=== PATIENT | male | born 1990 | race Hispanic/Latino ===

== ENCOUNTER 2021-07-06 15:38 | Emergency (ER) | payer BC, SELFPAY ==
[2021-07-06 15:39] VITALS: BP 131/81; PULSE 94; RESP 14; TEMP 36.1; O2SAT 99
--- NOTE | 2021-07-06 16:27 | ED.EYEPROB ---
HPI - Eye Problem General Chief complaint: Eye Problems Stated complaint: r eye pain Time Seen by Provider: 07/06/21 16:27 History of Present Illness HPI Narrative: 31 yo male w/ h/o DM presents to the ED c/o eye pain. He reports that as soon as he opened his eyes this morning he had a shooting pain in the right eye. When the eye is closed or he is in a dark room he does not have any pain. Vision is unchanged. No foreign body sensation. No headache. He does not wear contacts or glasses. Related Data Allergies Allergy/AdvReac Type Severity Reaction Status Date / Time No Known Allergies Allergy Verified 11/19/18 14:12 Review of Systems Review of Systems: All systems reviewed & are unremarkable except as noted in HPI and below Constitutional: Constitutional: Denies chills and Denies fever(s) Eyes: Eyes: Denies change in vision and Reports photophobia ENT: Reports system reviewed and no additional complaints, except as documented, Denies dizziness, Denies nasal congestion and Denies sore throat Cardiovascular: Cardiovascular: Denies chest pain Respiratory: Respiratory: Denies dyspnea Gastrointestinal: Gastrointestinal: Denies abdominal pain and Denies nausea Neurologic: Denies confusion, Denies dizziness, Denies headache(s), Denies numbness and Denies weakness [facility] Past Medical History Medical History (Updated 07/06/21 @ 21:15 by Binu Aaron MD) Diabetes Social History Social History (Updated 07/06/21 @ 21:16 by Binu Aaron MD) Smoking status: Never smoker Exam Const: General: healthy appearing, no acute distress and alert Orientation/consciousness: patient oriented x3 HENMT: Head: normal to inspection Ears: external ears normal, TM's normal bilaterally and EAC's normal Face and sinus: normal facial exam and sinuses nontender Eyes: Visual Ellis: normal visual ellis by confrontation Alignment and Position: alignment normal and position normal Periorbital: periorbital findings normal Eyelids: eyelids normal Conjunctivae: conjunctival abnormality right conjunctival injection diffuse (minimal) Cornea: corneas normal and fluorescein used Pupils: Equal, round and reactive pupils present EOM: EOMs intact bilaterally Direct Ophthalmoscopy: anterior chamber normal and photophobia (right) Neck: Neck: normal visual inspection and no lymphadenopathy Resp: Effort & Inspection: normal respiratory effort Auscultation: clear to auscultation bilaterally Cardio: Rate: regular rate Rhythm: regular rhythm Skin: General skin exam: normal color Neuro: General: patient oriented x3, moves all extremities, no focal motor deficits and CN's II-XI intact bilaterally Speech: normal speech Gait exam (Neuro): Normal gait present Course Vital Signs Vital signs: Vital Signs Temperature 36.1 C L 07/06/21 15:39 Pulse Rate 94 07/06/21 15:39 Respiratory Rate 14 07/06/21 15:39 Blood Pressure 131/81 07/06/21 15:39 Pulse Oximetry 99 07/06/21 15:39 Temperature 36.1 C L 07/06/21 15:39 Pulse Rate 90 07/06/21 18:00 Respiratory Rate 20 07/06/21 18:00 Blood Pressure 127/77 07/06/21 18:00 Pulse Oximetry 98 07/06/21 18:00 MDM - Eye Problem MDM Narrative Medical decision making narrative: no fluorescein uptake. Normal vision. Minimal injection. No sign of daniel/orbital cellulitis. Unclear cause. I will give ketorolac eyedrops for pain control and erythromycin ointment incase there is infection, although I see no clear sign of it. He will follow up with ophthalmology if pain does not resolve in 1-2 days. Differential Diagnosis Differential diagnosis: Likely corneal abrasion, conjunctivitis and acute iritis Medical Records Attestation: I reviewed the patient's medical records. Discharge Plan Discharge Clinical Impression: Acute iritis of right eye Patient Disposition: Home, Self-Care Condition: Stable Instructions: Antibiotic Form, Iritis (ED) Follow-up/Referr
--- NOTE | 2021-07-06 16:47 | PC.NURSE ---
Medications removed under wrong patient. Medications were not administered.
[2021-07-06] MEDS: ERYTHROMYCIN OPHTH OINTMENT 1 GM TUBE 1 APPLIC RIGHT EYE (17:19)
[2021-07-06] MEDS: KETOROLAC 0.5% OP SOLN 5 ML BOTTLE 1 DROP RIGHT EYE (17:19)
[2021-07-06 18:00] VITALS: BP 127/77; PULSE 90; RESP 20; O2SAT 98
== END 2021-07-06 18:00 | disposition home or self-care (01) ==
PROVIDERS: Emergency Provider Emergency Medicine
DX: H20.00 Unspecified acute and subacute iridocyclitis (principal); E11.9 Type 2 diabetes mellitus without complications
CPT/HCPCS: 99283; A9270; J1630; J2060

== ENCOUNTER 2021-12-13 15:11 | Emergency (ER) | payer MEDICAID, SELFPAY ==
[2021-12-13 15:14] VITALS: BP 132/86; PULSE 70; RESP 14; TEMP 36.4; O2SAT 100
[2021-12-13 15:24] LABS: Glucose Point of Care 347 mg/dl (65-105)
[2021-12-13 19:14] VITALS: BP 125/78; PULSE 74; RESP 18; O2SAT 98
[2021-12-13 23:49] LABS: Alveolar/Arterial O2 Gradient 13.7 mmHg; Base Excess ABG 0.3 mEq/l (+/-2.0); Fractional Inspired Oxygen 21 %; Oxygen Content ABG 21.2 %vol (16.0-22.0); Oxygen Saturation ABG 97.4 % (95.0-100.0); Oxyhemoglobin 96.4 % THb (90.0-100.0); PCO2 ABG 36.2 mmHg (35.0-45.0); PO2 ABG 92.7 mmHg (80.0-100.0); PO2 FiO2 Ratio Arterial Blood 4.41 %; Total Hemoglobin 15.6 g/dL (12.0-18.0); pH ABG 7.439 (7.350-7.450)
[2021-12-13 23:50] LABS: Device ROOM AIR; Modified Allen's Test Pass; Site Drawn RIGHT RADIAL
[2021-12-13 23:52] VITALS: BP 134/92; PULSE 88; RESP 16; TEMP 36.8; O2SAT 100
[2021-12-13] MEDS: SODIUM CHLORIDE 0.9% IV 1,000 ML 999 ML IV CONT (23:52)
[2021-12-14 00:02] LABS: Basophils Absolute Auto 0.1 K/mm3 (0.0-0.1); Basophils Percent Auto 0.6 % (0.2-1.2); Eosinophils Absolute Auto 0.1 K/mm3 (0-0.3); Eosinophils Percent Auto 1.5 % (0-4.4); Hemoglobin 16.2 g/dL (14.0-18.0); Immature Granulocyte Absolute 0.03 K/mm3 (0.00-0.031); Immature Granulocyte Percent A 0.3 % (0-0.5); Lymphocytes Absolute Auto 2.44 K/mm3 (0.9-3.2); Lymphocytes Percent Auto 28.4 % (18.3-44.2); Mean Corpuscular HGB Conc 35.2 g/dl (32-36); Mean Corpuscular Hemoglobin 28.9 pg (26-34); Mean Platelet Volume 9.4 fl (7.4-10.4); Monocytes Absolute Auto 0.4 K/mm3 (0.1-0.6); Monocytes Percent Auto 5.1 % (2.6-8.5); Neutrophils Absolute Auto 5.5 K/mm3 (1.3-6.7); Neutrophils Percent Auto 64.1 % (45.5-73.1); Platelet Count Result 355 k/mm3 (150-375); Red Blood Count 5.61 M/mm3 (4.6-6.20); Red Cell Distribution Width 12.2 % (11.5-14.5); White Blood Count 8.6 K/mm3 (4.5-10.0)
[2021-12-14 00:14] LABS: Add Urine Microscopic? YES; Appearance Urine Clear (Clear); Bilirubin Urine Negative (Negative); Blood Urine 1+ (Negative); Color Urine Yellow (Yellow); Glucose Urine UA 3+ mg/dL (Negative); Ketones Urine 1+ mg/dL (Negative); Leukocyte Esterase Ur Negative LEU/UL (Negative); Mucus Urine Rare /lpf; Nitrate Urine Negative (Negative); Protein Urine 1+ mg/dL (Negative); Squamous Epithelial Cell Urine Rare /hpf (Few); Urobilinogen Urine Negative mg/dL (<2.0); WBC Urine 0-3 /hpf
[2021-12-14 00:15] LABS: Specific Grav Ur 1.038 (1.001-1.035)
[2021-12-14 00:16] LABS: Alanine Aminotransferase 44 U/L (4-50); Albumin Level 5.2 g/dL (3.5-5.1); Alkaline Phosphatase 130 U/L (38-126); Anion Gap 7 mmol/L (8-16); Aspartate Amino Transferase 35 U/L (17-59); Blood Urea Nitrogen 18 mg/dL (9-20); Calcium 9.9 mg/dL (8.4-10.2); Carbon Dioxide 28 mmol/L (22-30); Chloride 97 mmol/L (98-107); Estimated Glomerular Filt Rate > 60; Glucose 320 mg/dL (65-110); Magnesium 1.8 mg/dL (1.6-2.3); Potassium 4.1 mmol/L (3.4-5.0); Sodium 132 mmol/L (137-145)
[2021-12-14 00:19] LABS: Beta-Hydroxybutyrate/Acetoacetate 0.31 mmol/L (0.02-0.27)
--- NOTE | 2021-12-14 00:54 | ED.GENADULT ---
HPI - General Adult General Chief complaint: Recheck/Abnormal Lab/Rx Stated complaint: high blood sugar Time Seen by Provider: 12/13/21 23:25 History of Present Illness HPI narrative: Patient is a 31-year-old gentleman who presents the emergency department with chief complaint of hyperglycemia. The patient reports that he has history of diabetes where he takes insulin and reports that he lost his insurance has been several months since he has taken his insulin patient already saw his primary care physician today who wrote him a prescription for insulin but had him come to the emergency department so we can get his blood sugars down instead of having him do it at home. Patient denies chest pain denies shortness of breath denies fever denies chills reports that he does have polyuria polydipsia. Related Data Home Medications Medication Instructions Recorded Confirmed No Home Medications 12/13/21 12/13/21 Allergies Allergy/AdvReac Type Severity Reaction Status Date / Time No Known Allergies Allergy Verified 12/13/21 23:45 Review of Systems Review of Systems: A 10 system review of systems was completed on the patient and is negative except for what is stated in the HPI. Nursing and ancillary documentation was reviewed. [facility] Past Medical History Medical History Diabetes Social History Social History Smoking status: Never smoker Exam Narrative: GENERAL: Well-appearing, well-nourished, and in no acute distress. HEAD: Normocephalic, atraumatic. EYES: PERRLA and EOMI. ENT: Nares clear, no rhinorrhea or epistaxis. Mucous membranes moist. NECK: Supple. CHEST: Clear to auscultation. No respiratory distress. HEART: Regular rate and rhythm. No murmur heard. Normal peripheral pulses. ABDOMEN: Soft, nontender, nondistended, normal active bowel sounds. EXTREMITIES: Normal range of motion. No edema. SKIN: Warm, dry, no rash. NEURO: No focal deficits. Alert and oriented x3. PSYCH: Normal mood and affect. Course Vital Signs Vital signs: Vital Signs Temperature 36.4 C L 12/13/21 15:14 Pulse Rate 70 12/13/21 15:14 Respiratory Rate 14 12/13/21 15:14 Blood Pressure 132/86 12/13/21 15:14 Pulse Oximetry 100 12/13/21 15:14 Temperature 36.8 C 12/13/21 23:52 Pulse Rate 88 12/13/21 23:52 Respiratory Rate 16 12/13/21 23:52 Blood Pressure 134/92 H 12/13/21 23:52 Pulse Oximetry 100 12/13/21 23:52 Medical Decision Making Vital Signs Vital Signs: Vital Signs Temperature 36.4 C L 12/13/21 15:14 Pulse Rate 70 12/13/21 15:14 Respiratory Rate 14 12/13/21 15:14 Blood Pressure 132/86 12/13/21 15:14 Pulse Oximetry 100 12/13/21 15:14 Temperature 36.8 C 12/13/21 23:52 Pulse Rate 88 12/13/21 23:52 Respiratory Rate 16 12/13/21 23:52 Blood Pressure 134/92 H 12/13/21 23:52 Pulse Oximetry 100 12/13/21 23:52 Lab Data Result diagrams: 12/13/21 23:55 12/13/21 23:55 Labs: Lab Results 12/13/21 12/13/21 12/13/21 Range/Units 15:19 23:55 23:55 WBC 8.6 (4.5-10.0) K/mm3 RBC 5.61 (4.6-6.20) M/mm3 Hgb 16.2 (14.0-18.0) g/dL Hct 46.0 (42.0-52.0) % MCV 82.0 (80-100) fl MCH 28.9 (26-34) pg MCHC 35.2 (32-36) g/dl RDW 12.2 (11.5-14.5) % Plt Count 355 (150-375) k/mm3 MPV 9.4 (7.4-10.4) fl Immature Gran % (Auto) 0.3 (0-0.5) % Neut % (Auto) 64.1 (45.5-73.1) % Lymph % (Auto) 28.4 (18.3-44.2) % [place] % (Auto) 5.1 (2.6-8.5) % Eos % (Auto) 1.5 (0-4.4) % Baso % (Auto) 0.6 (0.2-1.2) % Lymph # (Auto) 2.44 (0.9-3.2) K/mm3 [place] # (Auto) 0.4 (0.1-0.6) K/mm3 Eos # (Auto) 0.1 (0-0.3) K/mm3 Baso # (Auto) 0.1 (0.0-0.1) K/mm3 Abs Immat Gran (auto) 0.03 (0.00-0.031) K/mm3 Absolute Neuts (auto) 5.5 (1.3-6.7) K/mm3 Absolut
[2021-12-14] MEDS: SODIUM CHLORIDE 0.9% IV 1,000 ML 999 ML IV CONT (00:59)
[2021-12-14 01:53] LABS: Glucose Point of Care 250 mg/dl (65-105)
[2021-12-14] MEDS: INSULIN HUMAN REGULAR (*BKC) 100 UNITS/ML SUB-Q (02:06)
[2021-12-14 03:00] LABS: Glucose Point of Care 271 mg/dl (65-105)
[2021-12-14 03:34] VITALS: BP 115/89; PULSE 77; RESP 16; O2SAT 100
== END 2021-12-14 03:35 | disposition home or self-care (01) ==
PROVIDERS: Emergency Provider Emergency Medicine; PCP Physician Assistant
DX: E11.65 Type 2 diabetes mellitus with hyperglycemia (principal); T38.3X6A Underdosing of insulin and oral hypoglycemic [antidiabetic] drugs, initial encounter; Z91.120 Patient's intentional underdosing of medication regimen due to financial hardship; Z79.4 Long term (current) use of insulin
CPT/HCPCS: 36415; 36600; 80053; 81001; 82010; 82805; 82948; 83735; 85025; 96360; 96361; 99283; J1815; J7030

== ENCOUNTER 2024-04-06 02:11 | Emergency (ER) | payer OTHER, MEDICAID, SELFPAY ==
--- NOTE | ~2024-04-06 | XR_ITS ---
Clinical Indication: Chest pain PA and lateral views of the chest: Comparison: None Findings: The lungs are clear, without evidence of focal consolidation or pleural effusion. Cardiome diastinal silhouette is within normal limits. Bones and soft tissues are unremarkable. Impression: Normal chest. Reviewed, dictated and finalized at location . Impression: Normal chest.
--- NOTE | 2024-04-06 02:12 | ECG_ITS ---
SEE SCANNED COPY FOR CONFIRMED REPORT MTDD
[2024-04-06 02:17] VITALS: BP 129/77; PULSE 78; RESP 15; TEMP 36.6; O2SAT 99
[2024-04-06 02:33] VITALS: O2SAT 99
[2024-04-06 02:36] LABS: Basophils Absolute Auto 0.1 K/mm3 (0.0-0.1); Basophils Percent Auto 0.7 % (0.2-1.2); Eosinophils Absolute Auto 0.2 K/mm3 (0-0.3); Eosinophils Percent Auto 2.7 % (0-4.4); Hematocrit 42.5 % (42.0-52.0); Hemoglobin 14.8 g/dL (14.0-18.0); Immature Granulocyte Absolute 0.02 K/mm3 (0.00-0.031); Immature Granulocyte Percent A 0.2 % (0-0.5); Lymphocytes Absolute Auto 2.57 K/mm3 (0.9-3.2); Mean Corpuscular HGB Conc 34.8 g/dl (32-36); Mean Corpuscular Hemoglobin 29.4 pg (26-34); Mean Corpuscular Volume 84.5 fl (80-100); Mean Platelet Volume 9.5 fl (7.4-10.4); Monocytes Absolute Auto 0.5 K/mm3 (0.1-0.6); Monocytes Percent Auto 5.1 % (2.6-8.5); Neutrophils Absolute Auto 5.5 K/mm3 (1.3-6.7); Neutrophils Percent Auto 62.3 % (45.5-73.1); Platelet Count Result 349 k/mm3 (150-375); Red Blood Count 5.03 M/mm3 (4.6-6.20); White Blood Count 8.9 K/mm3 (4.5-10.0)
[2024-04-06 03:10] LABS: INR 0.9; Partial Thromboplastin Time 27.3 Seconds (22.3-36.8); Prothrombin Time 12.9 Seconds (11.1-14.7)
[2024-04-06 03:16] LABS: Alanine Aminotransferase 38 U/L (6-50); Albumin Level 4.6 g/dL (3.5-5.1); Alkaline Phosphatase 117 U/L (38-126); Anion Gap 5 mmol/L (4-12); Aspartate Amino Transferase 37 U/L (17-59); Bilirubin,Total 0.7 mg/dL (0.2-1.3); Blood Urea Nitrogen 23 mg/dL (9-20); Calcium 9.2 mg/dL (8.4-10.2); Carbon Dioxide 26 mmol/L (22-30); Chloride 104 mmol/L (98-107); Estimated CRCL calculation 121 ml/min; Estimated Glomerular Filt Rate > 60; Glucose 236 mg/dL (65-110); Lipase 55 U/L (23-300); Potassium 4.5 mmol/L (3.4-5.0); Sodium 135 mmol/L (137-145)
[2024-04-06 03:28] LABS: Troponin I 0.028 ng/mL (0.000-0.034)
--- NOTE | 2024-04-06 04:28 | ED.CHESTPAIN ---
HPI - Chest Pain General Chief Complaint: Chest Pain Stated Complaint: chest pain Time Seen by Provider: 04/06/24 03:38 History of Present Illness HPI narrative: Patient is a 34-year-old male who presents to the emergency department this evening complaining chest pain for the past 2-3 days. Patient admits that he has had chest pain similar to this the and did present a different emergency department and full workup was negative and he was told that his chest pain was due to stress. Patient states that the pain has somewhat subsided since it started but he still wanted to come in and get checked out. Patient admits that the pain is reproducible. He denies any shortness of breath, any URI symptoms, any fevers or chills, and any sharp stabbing chest pain. Patient denies cardiac history, denies any family history of cardiovascular disease and admits that he is a type 1 diabetic. There are no additional symptoms or concerns at this time. Related Data Home Medications Medication Instructions Recorded Confirmed No Home Medications 12/13/21 12/13/21 Allergies Allergy/AdvReac Type Severity Reaction Status Date / Time No Known Allergies Allergy Verified 12/13/21 23:45 Review of Systems Review of Systems: All systems are reviewed and are negative unless stated otherwise in the HPI. [facility] Past Medical History Medical History Diabetes Social History Social History Smoking status: Never smoker Exam Narrative: General: Alert, awake, afebrile, in no acute distress. HEENT: PERRL, no rhinorrhea, no post nasal drip, oropharynx clear. Cardiovascular: Regular rate and rhythm, no murmurs, rubs or gallops, no peripheral edema. Respiratory: Clear to auscultation bilaterally, no tachypnea, no wheezing, no rhonchi, no rubs, no respiratory distress. Abdomen: Soft, nontender, nondistended, no rebound, no guarding, no peritoneal signs. Musculoskeletal: No joint swelling or deformity, normal muscle tone. Skin: No rashes or petechia, no signs of infection. Psychiatric: Alert and oriented, normal behavior and judgment for situation. Neurological: Alert and oriented to person, place, and time. Follows all commands. No focal deficits, speech is clear and fluent. Course Vital Signs Vital signs: Vital Signs Temperature 98 F 04/06/24 02:17 Pulse Rate 78 04/06/24 02:17 Respiratory Rate 15 04/06/24 02:17 Blood Pressure 129/77 04/06/24 02:17 Pulse Oximetry 99 04/06/24 02:17 Oxygen Delivery Room Air 04/06/24 02:17 Temperature 98 F 04/06/24 02:17 Pulse Rate 77 04/06/24 04:39 Respiratory Rate 20 04/06/24 04:39 Blood Pressure 132/70 04/06/24 04:39 Pulse Oximetry 100 04/06/24 04:39 Oxygen Delivery Room Air 04/06/24 02:33 MDM - Chest Pain MDM Narrative Medical decision making narrative: The patient was evaluated by myself in the emergency department. History is obtained from patient who is an independent historian and physical exam was performed. External medical records were reviewed at this time. IV was established and pertinent tests were ordered. EKG was obtained which revealed sinus rhythm rate of 74 beats per minute. No ST changes, T wave inversions or evidence of acute ischemia. EKG was independently interpreted by me and is currently pending official cardiology read. Laboratory results obtained revealing no acute process. Imaging studies obtained included CXR which was independently interpreted by me revealing no acute cardiopulmonary process, which is pending final radiology interpretation. Differential diagnosis considerations include acute anxiety reaction, acute viral syndrome, infectious process such as pneumonia. Comorbidities impacting this visit include none. I have evaluated and discussed social determinants of health with the patient that could po
[2024-04-06 04:39] VITALS: BP 132/70; PULSE 77; RESP 20; O2SAT 100
== END 2024-04-06 04:41 | disposition home or self-care (01) ==
PROVIDERS: Emergency Provider Emergency Medicine; PCP Physician Assistant
DX: R07.89 Other chest pain (principal); E11.9 Type 2 diabetes mellitus without complications
CPT/HCPCS: 36415; 71046; 80053; 83690; 84484; 85025; 85610; 85730; 93005; 99284

== ENCOUNTER 2025-09-15 08:05 | Emergency (ER) | payer BC, SELFPAY ==
--- OUTSIDE RECORDS SUMMARY | 2024-01-18 04:07 | XMS_ITS | Continuity of Care Document ---
Author Organization [employer] [facility] Address [address] [place] [address] Phone Care Team Providers Care Clinical Data Analyst Name Role Phone Zach MURRAY, Brandan Unavailable Unavailab le Procedures Procedure Date Non-billable Service CRISIS INTERVENTION 1 MAN TEAM EMERGENCY TREATMENT Non-billable Service CASE MANAGEMENT BY TREVOR CASE MANAGEMENT BY PRETTY Advance Directives Directive Yes / No Effective Date File Name No Information Encounters Encounter Description Practice Location Reason(s) For Visit Diagnoses Date Provider Providers Copied on Encounter [facility], [address], [id number], tel:[phone] Geremias OSC No Information Zach AGUIRRES BHT Brandan. [address], [id number], . tel:[phone] [facility], [address], [id number], tel:[phone] Geremias CMT Reaction to severe stress, unspecified Bello CPSS BHT Josie. [address], [id number], [place]. tel:[phone] [facility], [address] [place] [address], [id number], tel:[phone] Geremias CMT Reaction to severe stress, unspecified Bello CPSS BHT Josie. [address] [address], [place], [place], [id number], [place]. tel:[phone] Family History Family Member Type Diagnosis Age At Onset No Information Payers Payer name Insurance type Covered democrat ID Authoriza tion(s) No Information Social History Type Description Quantity Date Captured Comments Sex Male Smoking Status No Information Chief Complaint And Reason For Visit No Information Reason For Referral Reason For Referral No Information Plan Of Treatment Date Type Action Status Goal Tdap. Due on due Goal Hepatitis C screening. Due o n due Goal Influenza vaccine. Due on due Goal Unhealthy drug use screening . Due on due Goal Depression screening. Due on due Goal Td vaccine. Due on due History Of Present Illness Encounter Date Complaint History Of Prese nt Illness No Information Functional Status Date Functional Assessmen t No Information Instructions Date Instruction Additional Infor mation No Information Assessments Type Assessment Date No Information Patient Care Teams Name Effective Dates (start - stop) Status Members No Information
--- OUTSIDE RECORDS SUMMARY | 2024-01-18 04:07 | XMS_ITS | Continuity of Care Document ---
Author Organization [employer] [facility] Address [address] [place] [phone] Phone Care Team Providers Care Equipment Service Associate Name Role Phone Zach MURRAY, Brandan Unavailable Unavailab le Procedures Procedure Date Non-billable Service CRISIS INTERVENTION 1 MAN TEAM EMERGENCY TREATMENT Non-billable Service CASE MANAGEMENT BY TREVOR CASE MANAGEMENT BY PRETTY Advance Directives Directive Yes / No Effective Date File Name No Information Encounters Encounter Description Practice Location Reason(s) For Visit Diagnoses Date Provider Providers Copied on Encounter [facility], [address], [id number], tel:[phone] Geremias OSC No Information Zach AGUIRRES BHT Brandan. [address], [id number], . tel:[phone] [facility], [address], [id number], tel:[phone] Geremias CMT Reaction to severe stress, unspecified Bello CPSS BHT Josie. [address], [id number], [place]. tel:[phone] [facility], [address] [place] [address], [id number], tel:[phone] Geremias CMT Reaction to severe stress, unspecified Bello CPSS BHT Josie. [address] [address], [place], [place], [id number], [place]. tel:[phone] Family History Family Member Type Diagnosis Age At Onset No Information Payers Payer name Insurance type Covered constitution party ID Authoriza tion(s) No Information Social History [...]
--- OUTSIDE RECORDS SUMMARY | 2024-10-19 11:13 | XMS_ITS | Continuity of Care Document ---
Author Organization [employer] [facility] Address [address] [place] [address] Phone Care Team Providers Care Employment Interviewer Name Role Phone Bello CPSS BHT, Josie Unavailable Unavail able Procedures Procedure Date Non-billable Service CRISIS INTERVENTION 1 MAN TEAM EMERGENCY TREATMENT Non-billable Service Non-billable Service Non-billable Service Advance Directives Directive Yes / No Effective Date File Name No Information Encounters Encounter Description Practice Location Reason(s) For Visit Diagnoses Date Provider Providers Copied on Encounter [facility], [address] [facility], [place], [place], [id number], tel:[phone] Geremias CMT No Information Bello CPSS BHT Josie. [address] [place] [address], [id number], . tel:[phone] [facility], [address] [facility], [place], [place], [id number], tel:[phone] [place] CMT Mental disorder, not otherwise specified Bello CPSS BHT Josie. [address] [place] [address], [id number], [place]. tel:[phone] [facility], [address], [place], [place], [id number], tel:[phone] Geremias CMT Mental disorder, not otherwise specified Bello CPSS BHT Josie. [address] [place] [address], [id number], [place]. tel:[phone] Family History Family Member Type Diagnosis Age At Onset No Information Payers Payer name Insurance type Covered libertarian ID Linda bee (s) RBHA-[employer] [facility] [id number] Social History Type Description Quantity Date Captured Comments Sex Male Smoking Status No Information Chief Complaint And Reason For Visit No Information Reason For Referral Reason For Referral No Information Plan Of Treatment Date Type Action Status Goal Hepatitis C screening. Due o n due Goal Tdap. Due on due Goal Depression screening. Due on due Goal Unhealthy drug use screening . Due on due Goal Influenza vaccine. Due on due Goal Td vaccine. Due [...]
--- OUTSIDE RECORDS SUMMARY | 2024-10-19 11:13 | XMS_ITS | Continuity of Care Document ---
Author Organization [employer] [facility] Address [address] [place] [address] Phone Care Team Providers Care Field Liability Generalist Name Role Phone Bello CPSS BHT, Josie Unavailable Unavail able Procedures Procedure Date Non-billable Service CRISIS INTERVENTION 1 MAN TEAM EMERGENCY TREATMENT Non-billable Service Non-billable Service Non-billable Service Advance Directives Directive Yes / No Effective Date File Name No Information Encounters Encounter Description Practice Location Reason(s) For Visit Diagnoses Date Provider Providers Copied on Encounter [facility], [address] [facility] [place], [place], [id number], tel:[phone] Geremias CMT No Information Bello CPSS BHT Josie. [address] [place] [address], [id number], . tel:[phone] [facility], [address] [facility] [place], [place], [id number], tel:[phone] [place] CMT Mental disorder, not otherwise specified Bello CPSS BHT Josie. [address] [place] [address], [id number], [place]. tel:[phone] [facility], [address], [place], [place], [id number], tel:[phone] Geremias CMT Mental disorder, not otherwise specified Bello CPSS BHT Josie. [address] [place] [address], [id number], [place]. tel:[phone] Family History Family Member Type Diagnosis Age At Onset No Information Payers Payer name Insurance type Covered green party ID Linda bee (s) RBHA-AZCH [facility] [id number] Social History Type Description Quantity Date Captured [...]
[2025-09-15] VITALS (21 sets, daily range): BP systolic 106–126; BP diastolic 65–88; PULSE 71–95; RESP 12–20; TEMP 37.3; O2SAT 96–100
--- NOTE | ~2025-09-15 | CT_ITS ---
EXAMINATION: CT thoracic spine wo con COMPARISON: None HISTORY: fall, mid back pain TECHNIQUE: Axial images were obtained through the spine without IV contrast. Coronal, sagittal reconstruction images were obtained from the axial views. CT scan performed using dose optimization techniques including the following automated exposure control; adjustment of mA and/or kV; use of iterative reconstruction technique. Automatic exposure control was used to reduce radiation dose. Permanent radiation dose record is archived to PACS. FINDINGS: The vertebral heights are intact. No fracture or subluxation. The disc heights are intact. Soft tissues unremarkable. Impression: No acute abnormality. Reviewed, dictated and finalized at location P. Impression: No acute abnormality.
--- NOTE | 2025-09-15 08:09 | ECG_ITS ---
Test Date: 2025-09-15 08:15:14 Measurements Intervals [place] Rate: 92 P: 36 W[place]: 143 QRS: 51 QRSD: 90 T: 32 QT: 335 QTc: 415 Interpretive Statements SINUS RHYTHM NONSPECIFIC ST ELEVATION IN ANTERIOR LEADS NONSPECIFIC T-WAVE ABNORMALITY- DIFFUSE LEADS BASELINE WANDER- I, III, AVR, AVL, AVF BORDERLINE ECG No previous ECG available for comparison Electronically Signed On 09-15-2025 08:35:44 CDT by Cristhian Ramirez D.O.
--- OUTSIDE RECORDS SUMMARY | 2025-09-15 08:13 | XMS_ITS | Clinical Summary ---
Author Organization [facility] Address [address] [place] [address] Phone Care Team Providers Care School Boat Driver Name Role Phone Unavailable Primary Care Provider Unavailabl e Allergies No known active allergies Medications insulin NPH (HumuLIN N KwikPen) 100 UNIT/ML Suspension Pen-injector 10 Units by Subcutaneous route 2 times daily (before meals). 15 mL 3 1 Active insulin regular human, CONCENTRATED, (HumuLIN R U-500 KwikPen) 500 UNIT/ML Solution Pen-injector 3 Units by Subcutaneous route 2 times daily (before meals). 15 mL 3 1 Active Insulin Pen Needle (PEN NEEDLES 31GX5/16) 31G X 8 MM Misc As Instructed 30 Each 4 1 Active Blood Glucose Monitoring Suppl Device Diagnosis: Diabetes type 1 Blood testing frequency BID prn 1 Each 1 Active Accu-Chek Multiclix Lancets Misc Check blood sugar BID prn 60 Each 11 1 Active Active Problems Problem Noted Date Diagnosed Date Type 1 diabetes mellitus with other specified co mplication 07/10/2021 Family History Medical History Relation Name Comments Diabetes Father Hypertension Father Hypertension Mother Relation Name Status Comments Father Alive Mother Alive Social History Tobacco Use Types Packs/Day Years Used Date Smoking Tobacco: Former Smokeless Tobacco: Never Tobacco Cessation:Counseling Given: No Alcohol Use Standard Drinks/Week Comments Yes 0 (1 standard drink = 0.6 oz pur e alcohol) PHQ-2 Answer Date Recorded Total Score - Questions 1-9 0 06/17 Sexually Active Control Partners Comments Yes Sex and Gender Information Value Date Recorded Sex Assigned at Not on file Legal Sex Male 1:36 PM CDT Gender Identity Not on file Sexual Orientation Not on file Last Filed Vital Signs Vital Sign Reading Time Taken Comments Blood Pressure 134/100 07/10/2021 2:05 PM CDT Pulse 100 07/10/2021 2:05 PM CDT Temperature 36.4 C (97.6 F) 07/10/2021 2:05 PM CDT Respiratory Rate 12 07/10/2021 2:05 PM CDT Oxygen Saturation 98% 07/10/2021 2:05 PM CDT Inhaled Oxygen Concentration - - Weight 82.3 kg (181 lb 8 oz) 07/10/2021 2:05 PM CDT Height 177.8 cm (5' 10) 07/10/2021 2:05 PM CDT Body Mass Index 26.04 07/10/2021 2:05 PM CDT Plan of Treatment Health Maintenance Due Date Last Done Comments Diabetes: Eye Exam 1990 Diabetes: Foot Exam 1990 Diabetes: Hemoglobin A1c 1990 Hepatitis C Virus (HCV) Screening 1990 TdaP Immunization 1990 Diabetes: Nephropathy Screening 2008 Hepatitis B Immunization (1 of 3 - 19+ 3-dose series) 2009 Pneumococcal Immunization Combined (1 of 2 - PCV) 2009 Human Papillomavirus (HPV) Immunization (1 - 3-dose SCDM series) 2017 Influenza Immunization (#1) 2025 SARS-COV-2 Immunization (3 - 2024- season) 2025 05/07/2021, 04/16/2021 Respiratory Syncytial Virus (RSV) Immunization (Adult) (1 - 1-dose 75+ series) 2065 Meningococcal Immunization (ACWY) Aged Out No longer eligible b ased on patient's age to complete this topic Rotavirus Immunization Aged Out No lo nger eligible based on patient's age to complete this topic [place] [address] [place] [address]
--- OUTSIDE RECORDS SUMMARY | 2025-09-15 08:13 | XMS_ITS | Data Portability ---
Author Organization [facility] - Amber CORTES Address [address] [place] [address] Care Team Providers Care Remedy Developer Name Role Phone BRYAN, BROCK Primary Care Provider Assessment Encounter Date Assessment Date Assessment LastModified by Organization Details LastModified Time 05/23/2022 05/23/2022 patient is set up with portal. will message me with BG on insulin. [email or web address] Not available 05/23/2022 10:33:03 06/07/2025 06/07/2025 patient thinks he had a stroke ? will request records courtney. Patient understands the need to control his diabetes and not skip any days of insulin. [email or web address] Not available 06/08/2025 13:31:31 Plan of Treatment Reminders Order Date Submit Date Provider Last Modified By Organization Details Last Modified Time Details Appointments None recorded. Lab HbA1c (hemoglobin A1c), blood 2024 025 [email or web address] In-Office Order, Internal Use Only DO Not Attach Compendium DO Not Attach Compendium, Do Not Delete/merge, [id number] 13:24:13 CMP, serum or plasma 2024 025 [email or web address] [facility], [address], [address], [place], [address], 5 13:24:11 albumin/cre atinine, mass ratio, urine 2024 025 [email or web address] [facility], [address], [address], [place], [address], 5 13:24:11 lipid panel, serum 2021 [facility], [address], [address], [place], [address], 2 20:09:20 microalbumi n/creatinin e, mass ratio, urine 2021 [facility]URALI [facility], [address], [address], [place], [address], 2 20:09:21 CBC w/ auto diff 2021 [facility], [address], [address], [place], [address], 2 20:09:19 CMP, serum or plasma 2021 MURALI [facility], [address], [address], [place], [address], 2 20:09:20 HbA1c (hemoglobin A1c), blood 2021 [facility], [address], [address], [place], [address], 2 20:09:22 glucose, fingerstick , blood 2021 022 [email or web address] In-Office Order, Internal Use Only DO Not Attach Compendium DO Not Attach Compendium, Do Not Delete/merge, [id number] 2 10:34:16 Referral endocrinolo gy referral 2024 025 [facility] , [address] [facility], [place], [address], 5 08:37:34 endocrinolo gy referral 2023 024 [email or web address] [facility] , [address] [place], [address], 4 16:37:12 diabetic ophthalmolo gy referral 2023 024 [email or web address] [facility], [address], [place], [address], 4 16:37:12 Procedures None recorded. Surgeries None recorded. Imaging None recorded. Medication Orders lisinopril 2.5 mg tablet 2024 [employer] [facility], [address] [place] [address], [id number], 5 14:42:00 sertraline 50 mg tablet 2024 [employer] [facility], [address] [place] [address], [id number], 5 14:41:57 insulin lispro (U-100) 100 unit/mL subcutaneou s solution 2024 025 [employer] [facility], [address] [place] [address], [id number], 5 17:33:36 Lantus Solostar U-100 Insulin 100 unit/mL (3 mL) subcutaneou s pen 2024 025 [employer] [facility], [address] [place] [address], [id number], 5 14:42:00 OneTouch Verio test strips 2024 [address] [facility], [address] [place] [address], [id number], 5 13:24:11 Glucagon Emergency Kit 1 mg solution for injection [address] [place], [place] [address] [facility], [address] [place] [address], [id number], 5 13:24:11 trazodone 100 mg tablet 2023 024 [place] [employer] [facility], [address] [place] [address], [id number], 5 14:41:56 escitalopra m 10 mg tablet 2023 024 [address] [facility], [address] [place] [address], [id number], 5 15:00:02 Lantus Solostar U-100 Insulin 100 unit/mL (3 mL) subcutaneou s pen 2023 024 [place] [employer] [facility], [address] [place] [address], [id number], 4 17:54:05 insulin lispro (U-100) 100 unit/mL subcutaneou s solution 2023 024 [place] [employer] [facility], [address] [place] [address], [id number], 4 12:57:11 Glucagon Emergency Kit 1 mg solution for injection 2023 024 [place] [employer] [facility], [address] [place] [address], [id number], 4 17:54:06 Humulin R Regular U-100 Insulin 100 unit/mL injection solution 2021 022 [email or web address] [employer] [facility], [address] [place] [address], [id number], 5 15:00:14 Humulin N NPH U-100 Insulin KwikPen 100 unit/mL (3 mL) subcutaneou s 2021 [email or web address] [employer], [address], [place], [id number], 15:56:02 amitriptyli ne 50 mg tablet 2021 [email or web address] [employer], [address], [place], [id number], 15:42:55 Patient TargetsNo targets recorded. Patient Instructions Encounter Date Encounter Id Patient Instructions Last Modified By Organization Details Last Modified Time 05/23/2022 [id number] type 1 diabetes: care instructions Not available 05/23/2022 10:17:33 learning about type 1 diabetes [email or web address] Not available 05/23/2022 10:17:33 diabetes blood sugar emergencies: your action plan Not available 05/23/2022 10:17:34 Reason for Referral Endocrinology Referral for T ype 1 diabetes mellitus Referring Physician: Brock Sandoval Member Of Technical Staff, Encounter Date: 03/17/2024 Diabetic Ophthalmology Refer ral for Type 1 diabetes mellitus Referring Physician: Brock Sandoval Member Of Technical Staff, Encounter Date: 03/17/2024 Endocrinology Referral for T ype 1 diabetes mellitus Referring Physician: Brock Sandoval Member Of Technical Staff, Encounter Date: 06/07/2025 Results Created Date Observation Date Name Description Value Unit Range Abnormal Flag Note LastModifiedBy Organization Detail LastModifiedTime 05/23/2005/24/2022 CBC WITH DIFFE RENTI AL/PL ATELE T WBC TNP x10e3 /uL Test not perfo rmed. No speci men recei carmen. Not Available [facility] ([facility]) [address], [place], [address], 05/24/2022 20:09:19 05/23/20 22 05/24/2022 CBC WITH DIFFE RENTI AL/PL ATELE T RBC TNP Test not perfo rmed Not Available [facility] ([facility]) [address], [place], [address], 05/24/2022 20:09:19 05/23/20 22 05/24/2022 CBC WITH DIFFE RENTI AL/PL ATELE T hemoglobin TNP Test not perfo rmed Not Available [facility] ([facility]) [address], [place], [address], 05/24/2022 20:09:19 05/23/20 22 05/24/2022 CBC WITH DIFFE RENTI AL/PL ATELE T hematocrit TNP Test not perfo rmed Not Available [facility] ([facility]) [address] [place], [address], 05/24/2022 20:09:19 05/23/20 22 05/24/2022 CBC WITH DIFFE RENTI AL/PL ATELE T MCV [employer]ER SYSTEMS ENGINEER Not Available [facility] ([facility]) [address] [place], [address], 05/24/2022 20:09:19 05/23/20 22 05/24/2022 CBC WITH DIFFE RENTI AL/PL ATELE T MCH [employer] ENGINEER Not Available [facility] ([facility]) [address] [place], [address], 05/24/2022 20:09:19 05/23/20 22 05/24/2022 CBC WITH DIFFE RENTI AL/PL ATELE T MCHC L[employer]ER SYSTEMS ENGINEER Not Available [facility] ([facility]) [address] [place], [address], 05/24/2022 20:09:19 05/23/20 22 05/24/2022 CBC WITH DIFFE RENTI AL/PL ATELE T RDW L[employer]ER SYSTEMS ENGINEER Not Available [facility] ([facility]) [address] [place], [address], 05/24/2022 20:09:19 05/23/20 22 05/24/2022 CBC WITH DIFFE RENTI AL/PL ATELE T platelets TNP Test not perfo rmed Not Available [facility] ([facility]) [address] [place], [address], 05/24/2022 20:09:19 05/23/20 22 05/24/2022 CBC WITH DIFFE RENTI AL/PL ATELE T neutrophils TNP Test not perfo rmed Not Available [facility] ([facility]) [address] [place], [address], 05/24/2022 20:09:19 05/23/20 22 05/24/2022 CBC WITH DIFFE RENTI AL/PL ATELE T lymphs TNP Test not perfo rmed Not Available [facility] ([facility]) [address] [place], [address], 05/24/2022 20:09:19 05/23/20 22 05/24/2022 CBC WITH DIFFE RENTI AL/PL ATELE T monocytes TNP Test not perfo rmed Not Available [facility] ([facility]) [address] [place], [address], 05/24/2022 20:09:19 05/23/20 22 05/24/2022 CBC WITH DIFFE RENTI AL/PL ATELE T eos TNP Test not perfo rmed Not Available [facility] ([facility]) [address] [place], [address], 05/24/2022 20:09:19 05/23/20 22 05/24/2022 CBC WITH DIFFE RENTI AL/PL ATELE T basos [employer]S ENGINEER Not Available [facility] ([facility]) [address] [place], [address], 05/24/2022 20:09:19 05/23/20 22 05/24/2022 CBC WITH DIFFE RENTI AL/PL ATELE T immature cells [employer]ER SYSTEMS ENGINEER Not Available [facility] ([facility]) [address] [place], [address], 05/24/2022 20:09:19 05/23/20 22 05/24/2022 CBC WITH DIFFE RENTI AL/PL ATELE T neutrophils (absolute) [employer]S ENGINEER Not Available [facility] ([facility]) [address] [place], [address], 05/24/2022 20:09:19 05/23/20 22 05/24/2022 CBC WITH DIFFE RENTI AL/PL ATELE T lymphs (absolute) TNP Test not perfo rmed Not Available [facility] ([facility]) [address] [place], [address], 05/24/2022 20:09:19 05/23/20 22 05/24/2022 CBC WITH DIFFE RENTI AL/PL ATELE T monocytes(ab solute) L[employer]ER SYSTEMS ENGINEER Not Available [facility] ([facility]) [address] [place], [address], 05/24/2022 20:09:19 05/23/20 22 05/24/2022 CBC WITH DIFFE RENTI AL/PL ATELE T eos (absolute) TNP Test not perfo rmed Not Available [facility] ([facility]) [address] [place], [address], 05/24/2022 20:09:19 05/23/20 22 05/24/2022 CBC WITH DIFFE RENTI AL/PL ATELE T baso (absolute) TNP Test not perfo rmed Not Available [facility] ([facility]) [address] [place], [address], 05/24/2022 20:09:19 05/23/20 22 05/24/2022 CBC WITH DIFFE RENTI AL/PL ATELE T immature granulocytes LASER SYSTEMS ENGINEER Not Available [facility] ([facility]) [address] [place], [address], 05/24/2022 20:09:19 05/23/20 22 05/24/2022 CBC WITH DIFFE RENTI AL/PL ATELE T immature grans (abs) L[employer]ER SYSTEMS ENGINEER Not Available [facility] ([facility]) [address], [place], [address], 05/24/2022 20:09:19 05/23/20 22 05/24/2022 CBC WITH DIFFE RENTI AL/PL ATELE T NRBC [employer]S ENGINEER Not Available [facility] ([facility]) [address], [place], [address], 05/24/2022 20:09:19 05/23/20 22 05/24/2022 CBC WITH DIFFE RENTI AL/PL ATELE T hematology comments: L[employer]ER SYSTEMS ENGINEER Not Available [facility] ([facility]) [address], [place], [address], 05/24/2022 20:09:19 05/23/20 22 05/24/2022 COMP. METAB OLIC PANEL (14) glucose TNP mg/dL Test not perfo rmed. No speci men recei carmen. Not Available [facility] ([facility]) [address], [place], [address], 05/24/2022 20:09:20 05/23/20 22 05/24/2022 COMP. METAB OLIC PANEL (14) BUN TNP Test not perfo rmed Not Available [facility] ([facility]) [address], [place], [address], 05/24/2022 20:09:20 05/23/20 22 05/24/2022 COMP. METAB OLIC PANEL (14) creatinine TNP Test not perfo rmed Not Available [facility] ([facility]) [address] [place], [address], 05/24/2022 20:09:20 05/23/20 22 05/24/2022 COMP. METAB OLIC PANEL (14) eGFR LASER SYSTEMS ENGINEER Not Available [facility] ([facility]) [address], [place], [address], 05/24/2022 20:09:20 05/23/20 22 05/24/2022 COMP. METAB OLIC PANEL (14) BUN/creatini ne ratio LASER SYSTEMS ENGINEER Not Available [facility] ([facility]) [address], [place], [address], 05/24/2022 20:09:20 05/23/20 22 05/24/2022 COMP. METAB OLIC PANEL (14) sodium TNP Test not perfo rmed Not Available [facility] ([facility]) [address], [place], [address], 05/24/2022 20:09:20 05/23/20 22 05/24/2022 COMP. METAB OLIC PANEL (14) potassium TNP Test not perfo rmed Not Available [facility] ([facility]) [address], [place], [address], 05/24/2022 20:09:20 05/23/20 22 05/24/2022 COMP. METAB OLIC PANEL (14) chloride TNP Test not perfo rmed Not Available [facility] ([facility]) [address], [place], [address], 05/24/2022 20:09:20 05/23/20 22 05/24/2022 COMP. METAB OLIC PANEL (14) carbon dioxide, total TNP Test not perfo rmed Not Available [facility] ([facility]) [address], [place], [address], 05/24/2022 20:09:20 05/23/20 22 05/24/2022 COMP. METAB OLIC PANEL (14) calcium TNP Test not perfo rmed Not Available [facility] ([facility]) [address], [place], [address], 05/24/2022 20:09:20 05/23/20 22 05/24/2022 COMP. METAB OLIC PANEL (14) protein, total TNP Test not perfo rmed Not Available [facility] ([facility]) [address] [place], [address], 05/24/2022 20:09:20 05/23/20 22 05/24/2022 COMP. METAB OLIC PANEL (14) albumin TNP Test not perfo rmed Not Available [facility] ([facility]) [address] [place], [address], 05/24/2022 20:09:20 05/23/20 22 05/24/2022 COMP. METAB OLIC PANEL (14) globulin, total L[employer]ER SYSTEMS ENGINEER Not Available [facility] ([facility]) [address] [place], [address], 05/24/2022 20:09:20 05/23/20 22 05/24/2022 COMP. METAB OLIC PANEL (14) A/G ratio L[employer]ER SYSTEMS ENGINEER Not Available [facility] ([facility]) [address] [place], [address], 05/24/2022 20:09:20 05/23/20 22 05/24/2022 COMP. METAB OLIC PANEL (14) bilirubin, total TNP Test not perfo rmed Not Available [facility] ([facility]) [address] [place], [address], 05/24/2022 20:09:20 05/23/20 22 05/24/2022 COMP. METAB OLIC PANEL (14) alkaline phosphatase TNP Test not perfo rmed Not Available [facility] ([facility]) [address] [place], [address], 05/24/2022 20:09:20 05/23/20 22 05/24/2022 COMP. METAB OLIC PANEL (14) AST (SGOT) TNP Test not perfo rmed Not Available [facility] ([facility]) [address] [place], [address], 05/24/2022 20:09:20 05/23/20 22 05/24/2022 COMP. METAB OLIC PANEL (14) ALT (SGPT) TNP Test not perfo rmed Not Available [facility] ([facility]) [address], [place], [address], 05/24/2022 20:09:20 05/23/20 22 05/24/2022 LIPID PANEL cholesterol, total TNP mg/dL Test not perfo rmed. No speci men recei carmen. Not Available [facility] ([facility]) [address], [place], [address], 05/24/2022 20:09:20 05/23/20 22 05/24/2022 LIPID PANEL triglyceride s TNP Test not perfo rmed Not Available [facility] ([facility]) [address], [place], [address], 05/24/2022 20:09:20 05/23/20 22 05/24/2022 LIPID PANEL HDL cholesterol TNP Test not perfo rmed Not Available [facility] ([facility]) [address], [place], [address], 05/24/2022 20:09:20 05/23/20 22 05/24/2022 LIPID PANEL VLDL cholesterol dejah TNP mg/dL Unabl e to calcu late resul t since non-n umeri c resul t obtai ector for compo nent test. Not Available [facility] ([facility]) [address], [place], [address], 05/24/2022 20:09:20 05/23/20 22 05/24/2022 LIPID PANEL LDL chol calc ([facility]) L[employer]ER SYSTEMS ENGINEER Not Available [facility] ([facility]) [address], [place], [address], 05/24/2022 20:09:20 05/23/20 22 05/24/2022 LIPID PANEL comment: L[employer]ER SYSTEMS ENGINEER Not Available [facility] ([facility]) [address], [place], [address], 05/24/2022 20:09:20 05/23/20 22 05/24/2022 ALBUM IN/CR EAT RATIO , RANDO M UR creatinine, urine 211.5 mg/dL not estab. Not Available [facility] ([facility]) [address] [place], [address], 05/24/2022 20:09:21 05/23/20 22 05/24/2022 ALBUM IN/CR EAT RATIO , RANDO M UR albumin, urine 62.4 ug/mL not estab. Not Available [facility] ([facility]) [address], [place], [address], 05/24/2022 20:09:21 05/23/20 22 05/24/2022 ALBUM IN/CR EAT RATIO , RANDO M UR alb/creat ratio 30 mg/g_ creat 0-29 above high normal Annika l: 0 - 29 Moder ately incre ased: 30 - 300 Sever tabitha incre ased: >300 Not Available [facility] ([facility]) [address] [place], [address], 05/24/2022 20:09:21 05/23/20 22 05/24/2022 HEMOG LOBIN A1C hemoglobin A1C TNP % Test not perfo rmed. No speci men recei carmen. Predi abete s: 5.7 - 6.4 Diabe ced: >6.4 Glyce vin contr ol for adult s with diabe ced: <7.0 Not Available [facility] ([facility]) [address] [place], [address], 05/24/2022 20:09:22 05/23/20 22 05/24/2022 SPECI MEN STATU S REPOR T specimen status report TNP Test not perfo rmed. No speci men recei carmen. TEST: 02176 9 CBC With Diffe renti al/[place] [address] 0 Comp. Metab olic Panel (82) 58136 4 Lipid Panel 65050 3 Hemog lobin A1c Not Available [facility] ([facility]) [address] [place], [address], 05/24/2022 20:09:22 05/23/20 22 05/23/2022 gluco se, finge rstic k, blood Blood Glucose: mg/dl 190 Not Available In-Off ice Order Internal Use Only DO Not Attach Compendium DO Not Attach Compendium, Do Not Delete/merge, [id number] 05/23/2022 10:34:02 03/16/20 24 03/17/2024 ALBUM IN/CR EAT RATIO , RANDO M UR creatinine, urine 91.5 mg/dL notest ab. Not Available [facility] ([facility]) [address], [place], [address], 03/17/2024 08:30:05 03/16/20 24 03/17/2024 ALBUM IN/CR EAT RATIO , RANDO M UR albumin, urine 26.8 ug/mL notest ab. Not Available [facility] ([facility]) [address], [place], [address], 03/17/2024 08:30:05 03/16/20 24 03/17/2024 ALBUM IN/CR EAT RATIO , RANDO M UR alb/creat ratio 29 mg/g_ creat 0-29 Annika l: 0 - 29 Moder ately incre ased: 30 - 300 Sever tabitha incre ased: >300 Not Available [facility] ([facility]) [address] [place], [address], 03/17/2024 08:30:05 03/16/20 24 03/17/2024 LIPID PANEL cholesterol, total 231 mg/dL 100-19 9 above high normal Not Available [facility] ([facility]) [address] [place], [address], 03/17/2024 08:30:06 03/16/20 24 03/17/2024 LIPID PANEL triglyceride s 204 mg/dL 0-149 above high normal Not Available [facility] ([facility]) [address] [place], [address], 03/17/2024 08:30:06 03/16/20 24 03/17/2024 LIPID PANEL HDL cholesterol 52 mg/dL >39 Not Available [facility] ([facility]) [address] [place], [address], 03/17/2024 08:30:06 03/16/20 24 03/17/2024 LIPID PANEL VLDL cholesterol dejah 37 mg/dL 5-40 Not Available [facility] ([facility]) [address] [place], [address], 03/17/2024 08:30:06 03/16/20 24 03/17/2024 LIPID PANEL LDL chol calc ([facility]) 142 mg/dL 0-99 above high normal Not Available [facility] ([facility]) [address] [place], [address], 03/17/2024 08:30:06 03/16/20 24 03/17/2024 COMP. METAB OLIC PANEL (14) glucose 137 mg/dL 70-99 above high normal Not Available [facility] ([facility]) [address] [place], [address], 03/17/2024 08:30:06 03/16/20 24 03/17/2024 COMP. METAB OLIC PANEL (14) BUN 21 mg/dL 6-20 above high normal Not Available [facility] ([facility]) [address] [place], [address], 03/17/2024 08:30:06 03/16/20 24 03/17/2024 COMP. METAB OLIC PANEL (14) creatinine 0.77 mg/dL 0.76-1 .27 Not Available [facility] ([facility]) [address] [place], [address], 03/17/2024 08:30:06 03/16/20 24 03/17/2024 COMP. METAB OLIC PANEL (14) eGFR 120 mL/mi n/1.7 3 >59 Not Available [facility] ([facility]) [address], [place], [address], 03/17/2024 08:30:06 03/16/20 24 03/17/2024 COMP. METAB OLIC PANEL (14) BUN/creatini ne ratio 27 9-20 above high normal Not Available [facility] ([facility]) [address] [place], [address], 03/17/2024 08:30:06 03/16/20 24 03/17/2024 COMP. METAB OLIC PANEL (14) sodium 140 mmol/ L 134-14 4 Not Available [facility] ([place] [facility]) [address] [place], [address], 03/17/2024 08:30:06 03/16/20 24 03/17/2024 COMP. METAB OLIC PANEL (14) potassium 4.1 mmol/ L 3.5-5. 2 Not Available [facility] ([facility]) [address], [place], [address], 03/17/2024 08:30:06 03/16/20 24 03/17/2024 COMP. METAB OLIC PANEL (14) chloride 99 mmol/ L 96-106 Not Available [facility] ([place] [facility]) [address], [place], [address], 03/17/2024 08:30:06 03/16/20 24 03/17/2024 COMP. METAB OLIC PANEL (14) carbon dioxide, total 26 mmol/ L 20-29 Not Available [facility] ([place] [facility]) [address] [place], [address], 03/17/2024 08:30:06 03/16/20 24 03/17/2024 COMP. METAB OLIC PANEL (14) calcium 10.4 mg/dL 8.7-10 .2 above high normal Not Available [facility] ([facility]) [address] [place], [address], 03/17/2024 08:30:06 03/16/20 24 03/17/2024 COMP. METAB OLIC PANEL (14) protein, total 7.9 g/dL 6.0-8. 5 Not Available [facility] ([facility]) [address], [place], [address], 03/17/2024 08:30:06 03/16/20 24 03/17/2024 COMP. METAB OLIC PANEL (14) albumin 4.8 g/dL 4.1-5. 1 Not Available [facility] ([facility]) [address] [place], [address], 03/17/2024 08:30:06 03/16/20 24 03/17/2024 COMP. METAB OLIC PANEL (14) globulin, total 3.1 g/dL 1.5-4. 5 Not Available [facility] ([facility]) [address] [place], [address], 03/17/2024 08:30:06 03/16/20 24 03/17/2024 COMP. METAB OLIC PANEL (14) A/G ratio 1.5 1.2-2. 2 Not Available [facility] ([facility]) [address], [address], 03/17/2024 08:30:06 03/16/20 24 03/17/2024 COMP. METAB OLIC PANEL (14) bilirubin, total 0.5 mg/dL 0.0-1. 2 Not Available [facility] ([facility]) [address] [place], [address], 03/17/2024 08:30:06 03/16/20 24 03/17/2024 COMP. METAB OLIC PANEL (14) alkaline phosphatase 134 IU/L 44-121 above high normal Not Available [facility] ([facility]) [address] [place], [address], 03/17/2024 08:30:06 03/16/20 24 03/17/2024 COMP. METAB OLIC PANEL (14) AST (SGOT) 19 IU/L 0-40 Not Available [facility] ([facility]) [address] [place], [address], 03/17/2024 08:30:06 03/16/20 24 03/17/2024 COMP. METAB OLIC PANEL (14) ALT (SGPT) 29 IU/L 0-44 Not Available [facility] ([facility]) [address] [place], [address], 03/17/2024 08:30:06 03/16/20 24 03/17/2024 HEMOG LOBIN A1C hemoglobin A1C 10.2 % 4.8-5. 6 above high normal Predi abete s: 5.7 - 6.4 Diabe ced: >6.4 Glyce vin contr ol for adult s with diabe ced: <7.0 Not Available [facility] [facility]) [address] [place], [address], 03/17/2024 08:30:07 06/07/20 25 06/08/2025 ALBUM IN/CR EATIN INE RATIO ,URIN E creatinine, urine 132.1 mg/dL notest ab. Not Available [facility] ([facility]) [address] [place], [address], 06/08/2025 13:14:00 06/07/20 25 06/08/2025 ALBUM IN/CR EATIN INE RATIO ,URIN E albumin, urine 62.9 ug/mL notest ab. Not Available [facility] ([facility]) [address] [place], [address], 06/08/2025 13:14:00 06/07/20 25 06/08/2025 ALBUM IN/CR EATIN INE RATIO ,URIN E alb/creat ratio 48 mg/g_ creat 0-29 above high normal Annika l: 0 - 29 Moder ately incre ased: 30 - 300 Sever tabitha incre ased: >300 Not Available [facility] ([facility]) [address] [place], [address], 06/08/2025 13:14:00 06/07/20 25 06/08/2025 COMP. METAB OLIC PANEL (14) glucose 309 mg/dL 70-99 above high normal Not Available [facility] ([facility]) [address] [place], [address], 06/08/2025 13:14:02 06/07/20 25 06/08/2025 COMP. METAB OLIC PANEL (14) BUN 24 mg/dL 6-20 above high normal Not Available [facility] ([facility]) [address] [place], [address], 06/08/2025 13:14:02 06/07/20 25 06/08/2025 COMP. METAB OLIC PANEL (14) creatinine 1.08 mg/dL 0.76-1 .27 Not Available [facility] ([facility]) [address] [place], [address], 06/08/2025 13:14:02 06/07/20 25 06/08/2025 COMP. METAB OLIC PANEL (14) eGFR 92 mL/mi n/1.7 3 >59 Not Available [facility] ([facility]) [address] [place], [address], 06/08/2025 13:14:02 06/07/20 25 06/08/2025 COMP. METAB OLIC PANEL (14) BUN/creatini ne ratio 22 9-20 above high normal Not Available [facility] ([facility]) [address] [place], [address], 06/08/2025 13:14:02 06/07/20 25 06/08/2025 COMP. METAB OLIC PANEL (14) sodium 134 mmol/ L 134-14 4 Not Available [facility] ([facility]) [address], [place], [address], 06/08/2025 13:14:02 06/07/20 25 06/08/2025 COMP. METAB OLIC PANEL (14) potassium 4.6 mmol/ L 3.5-5. 2 Not Available [facility] ([facility]) [address], [place], [address], 06/08/2025 13:14:02 06/07/20 25 06/08/2025 COMP. METAB OLIC PANEL (14) chloride 95 mmol/ L 96-106 below low normal Not Available [facility] ([facility]) [address], [place], [address], 06/08/2025 13:14:02 06/07/20 25 06/08/2025 COMP. METAB OLIC PANEL (14) carbon dioxide, total 23 mmol/ L 20-29 Not Available [facility] ([facility]) [address], [place], [address], 06/08/2025 13:14:02 06/07/20 25 06/08/2025 COMP. METAB OLIC PANEL (14) calcium 9.8 mg/dL 8.7-10 .2 Not Available [facility] ([facility]) [address], [place], [address], 06/08/2025 13:14:02 06/07/20 25 06/08/2025 COMP. METAB OLIC PANEL (14) protein, total 8.1 g/dL 6.0-8. 5 Not Available [facility] ([facility]) [address], [place], [address], 06/08/2025 13:14:02 06/07/20 25 06/08/2025 COMP. METAB OLIC PANEL (14) albumin 4.7 g/dL 4.1-5. 1 Not Available [facility] ([facility]) [address] [place], [address], 06/08/2025 13:14:02 06/07/20 25 06/08/2025 COMP. METAB OLIC PANEL (14) globulin, total 3.4 g/dL 1.5-4. 5 Not Available [facility] ([facility]) [address] [place], [address], 06/08/2025 13:14:02 06/07/20 25 06/08/2025 COMP. METAB OLIC PANEL (14) bilirubin, total 0.5 mg/dL 0.0-1. 2 Not Available [facility] ([facility]) [address] [place], [address], 06/08/2025 13:14:02 06/07/20 25 06/08/2025 COMP. METAB OLIC PANEL (14) alkaline phosphatase 136 IU/L 44-121 above high normal Not Available [facility] ([facility]) [address] [place], [address], 06/08/2025 13:14:02 06/07/20 25 06/08/2025 COMP. METAB OLIC PANEL (14) AST (SGOT) 20 IU/L 0-40 Not Available [facility] ([facility]) [address] [place], [address], 06/08/2025 13:14:02 06/07/20 25 06/08/2025 COMP. METAB OLIC PANEL (14) ALT (SGPT) 29 IU/L 0-44 Not Available [facility] ([facility]) [address] [place], [address], 06/08/2025 13:14:02 06/07/20 25 06/07/2025 HbA1c (hemo globi n A1c), blood HbA1C 8.8 % Not Available In-Office Order Internal Use Only DO Not Attach Compendium DO Not Attach Compendium, Do Not Delete/merge, [id number] 06/07/2025 14:30:09 04/06/20 24 04/06/2024 XR, chest , 2 view No observ ation record ed. [place] [id number], [place], [address], 04/12/2024 13:26:41 Result Notes None recorded. Problems Name Problem SNOMED Code Status Onset Date Resolution Date Notes Provider Name and Address Organization Details Recorded Time Diabetes mellitus 79002650 Active 2018 Trey be[place]vers, [place] - [facility] 9 12:01:41 Hypercholester olemia 13951024 Active 2018 Trey [place] - [facility] 9 12:01:49 Diabetic peripheral neuropathy 020360470 Active 2018 JIMMY Garsia Attn: Juan guevara,[address], [place], [address], [place] - [facility] 9 11:38:03 Reduced visual acuity 63758818 Active 2018 JIMMY Garsia Attn: Juan g,[address], [place], [address], [place] - [facility] 9 11:38:04 Moderate recurrent major depression 39338920 Active 2023 NITHYA BOWLING Attn: Juan guevara,[address], [place], [address], [place] [facility] 4 14:43:28 Type 1 diabetes mellitus 52781861 Active 2023 NITHYA BOWLING Attn: Juan guevara,[address], [place], [address], [place] - [facility] 4 14:45:03 Problem Notes None recorded. Medical Equipment None Reported. Allergies No known drug allergies Medications Name Sig Start Date Stop Date Status Note LastModified by Organization Details LastModified Time atorvastati n 80 mg tablet Take 1 tablet every day by oral route. 12/13 completed Not Available Not Available Not Available Glucagon Emergency Kit 1 mg solution for injection Take 1 mg every day by injection route as needed. 2024 active Not Available Not Available Not Avai lable gabapentin 400 mg capsule Take 1 capsule 3 times a day by oral route. 12/13 completed Not Available Not Available Not Available Lantus U-100 Insulin 100 unit/mL subcutaneou s solution INJECT 10 UNITS SUBCUTANE OUSLY ONCE DAILY DIRECTED active Not Available Not Available No t Available aspirin 81 mg tablet,hamzah yed release Take 1 tablet every day by oral route. 12/13 completed Not Available Not Available Not Available amitriptyli ne 50 mg tablet Take 1 tablet every day by oral route for 90 days. 03/17 completed Not Available Not Available Not Available trazodone 100 mg tablet TAKE 1 TABLET BY MOUTH EVERYDAY AT BEDTIME active Not Available Not Available No t Available Humulin R Regular U-100 Insulin 100 unit/mL injection solution INJECT 3 UNITS UNDER THE SKIN BEFORE BREAKFAST AND BEFORE DINNER 06/07 completed Not Available Not Available Not Available nystatin 100,000 unit/gram topical cream APPLY TO THE AFFECTED AREA(S) BY TOPICAL ROUTE 2 TIMES PER DAY 12/13 completed Not Available Not Available Not Available Humulin N NPH U-100 Insulin (isophane susp) 100 unit/mL subcutaneou s Inject 15 units twice a day by subcutane ous route. 12/13 completed Not Available Not Available Not Available gabapentin 300 mg capsule Take 1 capsule 3 times a day by oral route. 12/13 completed Not Available Not Available Not Available aspirin 81 mg chewable tablet Chew 1 tablet every day by oral route. 06/01 completed Not Available Not Available Not Available insulin lispro (U-100) 100 unit/mL subcutaneou s solution sliding scale: 2 units if 160-220; 4 units if 221-280; 6 units; 8 units if 341-400 2024 active Not Available Not Available Not Avai lable sertraline 50 mg tablet TAKE ONE TABLET BY MOUTH EVERY MORNING FOR ANXIETY active Not Available Not Available No t Available lisinopril 2.5 mg tablet TAKE ONE TABLET BY MOUTH EVERY MORNING FOR BLOOD PRESSURE active Not Available Not Available No t Available amoxicillin 875 mg-potassiu m clavulanate 125 mg tablet TK 1 T PO BID 12/13 completed Not Available Not Available Not Available insulin lispro (U-100) 100 unit/mL subcutaneou s pen INJECT 4 UNITS ONCE DAILY WITH LARGEST MEAL 06/07 completed Not Available Not Available Not Available escitalopra m 10 mg tablet TAKE 1 TABLET BY MOUTH EVERY MORNING 06/07 completed Not Available Not Available Not Available chlorhexidi ne gluconate 0.12 % mouthwash SWISH AND SPIT 5ML PO BID PRN P FOR 7 DAYS 12/13 completed Not Available Not Available Not Available Lantus Solostar U-100 Insulin 100 unit/mL (3 mL) subcutaneou s pen INJECT 20 UNITS UNDER THE SKIN ONCE EVERY DAY active Not Available Not Available No t Available OneTouch Verio test strips Take 5 strips every day by miscell. route. 2024 active Not Available Not Available Not Avai lable Comfort EZ Insulin Syringe 0.5 mL 31 gauge x 5/16 12/13 completed Not Available Not Available Not Available Humulin N NPH U-100 Insulin KwikPen 100 unit/mL (3 mL) subcutaneou s INJECT 10 UNITS UNDER THE SKIN TWICE DAILY BEFORE MEALS 03/17 completed Not Available Not Available Not Available True Metrix Glucose Meter USE TO TEST BLOOD SUGAR TWICE DAILY 12/13 completed Not Available Not Available Not Available TRUEplus Pen Needle 31 gauge x 1/4 USE DIRECTED 12/13 completed Not Available Not Available Not Available ID NOW COVID-19 Test Kit TEST DIRECTED 12/13 completed Not Available Not Available Not Available Vitals Date Recorded Body height Body mass index (BMI) Body weight Heart rate Oxygen saturation Oxygen saturation in Arterial blood by Pulse oximetry Systolic And Diastolic Provider Name and Address Organization Details Last Updated DateTime 4 180.34 cm 23.8 kg/m2 17328.3 g 119 /min 99 % 99 % 126/90 mm[Hg] Nova Phan [place] - [facility] 4 15:41:49 Date Recorded Oxygen saturation Oxygen saturation in Arterial blood by Pulse oximetry Provider Name and Address Organization Details Last Updated DateTime 04/21/2024 98 % 98 % NITHYA BOWLING Attn: Accounting, [facility], [place], [address], [facility] 05/02/2024 09:43:35 Date Recorded Body height Body mass index (BMI) Body weight Heart rate Systolic And Diastolic Provider Name and Address Organization Details Last Updated DateTime 04/21/2024 180.34 cm 24.6 kg/m2 90772.36 g 98 /min 112/76 mm[Hg] Nova Phan MA [facility] 04/21/2024 09:32:22 Date Recorded Body height Body mass index (BMI) Body weight Heart rate Oxygen saturation Oxygen saturation in Arterial blood by Pulse oximetry Systolic And Diastolic Provider Name and Address Organization Details Last Updated DateTime 2 180.34 cm 24 kg/m2 58392.2 9 g 84 /min 99 % 99 % 100/60 mm[Hg] Nova Phan MA [facility] 2 10:02:19 Date Recorded Body weight Body mass index (BMI) Body height Heart rate Body temperature Respiratory rate Systolic And Diastolic Provider Name and Address Organization Details Last Updated DateTime 5 71232.7 g 23.7 kg/m2 180.34 cm 99 /min 98 [degF] 14 /min 114/80 mm[Hg] NITHYA BOWLING Attn: Galileoin g,[address] [place], [address], [facility] 5 13:20:52 Social History Question Answer Notes LastModified by Organizat ion Details LastModified Time Tobacco Smoking Status Former Smoker Trey beavers, [facility] 11/19/2018 12:06:03 Do You Have An Advance Directive? No Information not available 12/13/2021 What Is Your Level Of Caffeine Consumption? Occasional Information not available 11/19/2018 How Much Tobacco Do You Chew? None Information not available 11/19/2018 In The 14 Days Before Symptom Onset, Have You Had Close Contact With A Laboratory-confir med COVID-19 While That Case Was Ill? No Information not available 12/13/2021 In The 14 Days Before Symptom Onset, Have You Had Close Contact With A Person Who Is Under Investigation For COVID-19 While That Person Was Ill? No Information not available 12/13/2021 Have You Been To An Area Known To Be High Risk For COVID-19? No Information not available 12/13/2021 What Type Of Diet Are You Following? REGULAR Information not available 11/19/2018 Education 12 Information no t available 11/19/2018 Are There Any Guns Present In Your Home? No Information not available 11/19/2018 Hard Of Hearing Or Deaf In One Or Both Ears? No Information not available 11/19/2018 Legally Blind In One Or Both Eyes? No Information no t available 11/19/2018 Marital Status Single Informatio n not available 11/19/2018 What Was The Date Of Your Most Recent Tobacco Screening? 06/07/2025 Information not available 06/07/2025 What Is Your Relationship Status? Single Information not available 12/13/2021 Seat Belts Used Routinely Yes Information not available 11/19/2018 Smoke Alarm In Home Yes Information not available 11/19/2018 Do You Have Smoke And Carbon Monoxide Detectors In Your Home? Yes Information not available 12/13/2021 Are You Passively Exposed To Smoke? No Information no t available 12/13/2021 How Much Tobacco Do You Smoke? 1 PPD Quit 2 Years Ago Information not available 06/01/2019 General Stress Level Low Information not available 11/19/2018 Do You Use Sunscreen Routinely? No Information not available 11/19/2018 Has Tobacco Cessation Counseling Been Provided? Yes Information not available 06/01/2019 On What Date Was Tobacco Cessation Counseling Provided? 06/07/2025 Information not available 06/07/2025 How Many Years Have You Smoked Tobacco? 4 Information not available 06/01/2019 Sex: Male Functional Status Question Answer Note LastModified by Organizat ion Details LastModified Time What is your level of alcohol consumption? Occasional Rarely. Information not available 06/07/2025 Do you or have you ever used smokeless tobacco? 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 Current user of electronic cigarettes Vapes Information not available 06/07/2025 What is your exercise level? Moderate Information not available 11/19/2018 Mental Status None recorded. Family History Relationship Description Onset Age of this Age Resolved Age Notes LastModified by Organization Details LastModified Time Father Diabetes mellitus Patern al grandf ather yarauz Not available 06/01/2019 15:24:49 Sister Diabetes mellitus yarauz Not available 2018 11:26:51 Mother Malignant neoplasm of urinary bladder yarauz Not available 2018 11:27:30 Maternal Grandmother Malignant neoplastic disease 80 yarauz Not available 2018 11:28:07 Brother Hypothyroidi sm yarauz Not available 2018 15:24:06 Medical History Condition Response Coronary Artery Disease N Other N High Blood Pressure N Atrial Fibrillation N Kidney or Bladder Problems N Thyroid Problems N GI Problems N Depression N COPD N Blood Clots N Skin Problems N Anemia N Heart Attack ([place]) N Anxiety Disorder N Diabetes Y Muscle, Joint, or Bone Problems N Seizures/Epilepsy N Acid Reflux (GERD) N Cancer N Stroke N Asthma N Allergies N High Cholesterol N Hepatitis N Liver Disease N Headaches N Heart Failure N Osteoporosis N Immunizations Vaccine Type Date Status Note Provider Nam e and Address Organization Details Recorded Time Tdap 8 completed KAMINI Castano - [facility] 11/19/2018 12:01:20 Influenza, split virus, quadrivalent, preservative 8 KAMINI Wood - [facility] 11/19/2018 12:01:29 DTP 0 completed LACY Parmar, KAMINI - [facility] 04/23/2022 09:41:05 DTP 0 completed LACY Parmar, KAMINI - [facility]04/23/2022 09:41:19 DTP 1 completed Nova Phan [place], [place] - [facility] 04/23/2022 09:41:37 DTP 1 completed Nova Phan [place] [facility] 04/23/2022 09:41:48 DTP 6 completed Nova Phan [place] [facility] 04/23/2022 09:42:06 Hib, unspecified formulation 1 completed Nova Phan [place] [facility] 04/23/2022 09:42:43 Hib, unspecified formulation 1 completed Nova Phan [place] [facility] 04/23/2022 09:42:50 Hep A, ped/adol, 2 dose 1 completed Nova Phan [place] [facility] 04/23/2022 09:43:09 OPV, trivalent 0 completed [facility] 06/07/2025 14:15:41 OPV, trivalent 0 completed Not Available [facility] 06/07/2025 14:15:41 MMR 1 completed Not [facility] 06/07/2025 14:15:41 OPV, trivalent 1 completed [facility]/07/[facility]25 14:15:41 MMR 6 completed Not Available [facility] 06/07/2025 14:15:41 OPV, trivalent 6 completed Not Available [facility] 06/07/2025 14:15:41 Hep B, adolescent or pediatric 8 completed Not Available [facility] 06/07/2025 14:15:41 Hep B, adolescent or pediatric 8 completed Not Available [facility] 06/07/2025 14:15:41 Hep B, adolescent or pediatric 9 completed Not Available [facility] 06/07/2025 14:15:41 Td (adult), 2 Lf tetanus toxoid, preservative free, adsorbed 2 completed Not Available [facility] 06/07/2025 14:15:41 meningococcal C conjugate 6 completed Not Available [facility] 06/07/2025 14:15:41 Tdap 6 completed Not Available [facility] 06/07/2025 14:15:41 COVID-19, mRNA, LNP-S, PF, 30 mcg/0.3 mL dose 1 completed Not Available [facility] 06/07/2025 14:15:41 COVID-19, mRNA, LNP-S, PF, 30 mcg/0.3 mL dose 1 completed Not Available [facility] 06/07/2025 14:15:41 pneumococcal polysaccharide PPV23 9 completed Not Available [facility] 12/03/2019 02:38:05 Influenza, split virus, quadrivalent, preservative 9 completed Not Available [facility] 12/03/2019 02:49:50 Past Encounters Encounter ID Performer Location Encounter Start Date Encounter Closed Date Diagnosis/Indication Diagnosis SNOMED-CT Code Diagnosis ICD10 Code Diagnosis IMO Codes Diagnosis Note [id number] Matt Sullivan MD [facility] [address], [place] [address] 11/24/2018 10:25:35 11/25/2018 15:17:47 Type 1 diabetes mellitus 52467036 E10.9 Reduced visual acuity 13 372845 H54.7 Diabetic p eripheral neuropathy 245462412 E11.40 Hypercholesterolemia 136 73435 E78.00 [id number] Matt Sullivan MD [facility] [address] [place] [address] 06/01/2019 14:21:25 06/03/2019 09:15:48 Hypercholesterolemia 19551517 E78.00 Will recheck levels todayAvoid all breads, potatoes, cereal, pasta, rice, margarine, refined sugars, milk yogurt, ice cream, juices, soda (including diet), beer, and manmade or manufactur ed desserts. Enjoy steak, fish, chicken (no skin), pork, butter, vegetables , beans, nuts, whole eggs, cheese (low fat or skim), cream in your coffee. Type 1 paramjit betes mellitus 91004320 E10.9 HA1C 13.2No medicines for 3 monthNonco mpliance with diet, exercise, medication s Reduced visual acuity 13 971607 H54.7 ophthalmol ogist list Diabetic p eripheral neuropathy 554835023 E11.40 will continue with Gabapentin Noncomplia nce with medication regimen 255944152 Z91.14 29 y/o HM with DM1 not using his insulin for last 3 [id number] today 13.2Reiter ated uncontroll ed DM consequenc es blindness, kidney failure, stroke, heart attack, amputation s Depression screening 171 262064 Z13.31 Positive Patient voices improvemen t Denies SI Refuses talk therapy or pharmacoth erapy Body mass index 25-29 - overweight 633833806 Z68.26 BMI 26 almost at healthy weight Administra tion of pneumococcal vaccine 06793826 Z23 Tinea pedis 2465587 B35. 3 feet with maceration wi;; start [facility] foot [facility] [id number] Matt Sullivan MD [facility] [address] [place] [address] 08/04/2019 10:24:58 08/05/2019 09:10:06 Hypercholesterolemia 25158963 E78.00 Last lipid level 05/2019 abnormalAv oid all breads, potatoes, cereal, pasta, rice, margarine, refined sugars, milk yogurt, ice cream, juices, soda (including diet), beer, and manmade or manufactur ed desserts. Enjoy steak, fish, chicken (no skin), pork, butter, vegetables , beans, nuts, whole eggs, cheese (low fat or skim), cream in your coffee. Type 1 paramjit betes mellitus 63369122 E10.9 HA1C 12Increase Humulin N to 15 units bidcontinu e Humulin R insulin same dosageKeep a log of b.s. reading fasting and 2 hours post meals Noncomplia nce with diet, exercise, medication s Reduced visual acuity 13 187644 H54.7 ophthalmol ogist list Diabetic p eripheral neuropathy 929835477 E11.40 will continue with Gabapentin Noncomplia nce with medication regimen 696447627 Z91.14 29 y/o HM with DM1 not using his insulin for last 3 [id number] today 13.2Reiter ated uncontroll ed DM consequenc es blindness, kidney failure, stroke, heart attack, amputation s Depression screening 171 Z13.31 Positive Patient voices improvemen t Denies SI Refuses talk therapy or pharmacoth erapy Body mass index 25-29 - overweight 519469401 Z68.26 BMI 26 almost at healthy weight Tinea pedis 0563587 B35. 3 feet with maceration wi;; start [facility] sc[facility] foot [facility] Administra tion of influenza vaccine 54516593 Z23 Hypercalcemia 12250323 E 83.52 [id number] NITHYA BOWLING [facility] [address] [place] [address] 12/13/2021 14:28:11 12/16/2021 09:26:45 Type 1 diabetes mellitus 14041982 E10.9 HA1C 2018. has not been on medication 4 months. will send to hospital to bring down glucose and f/u thursday. Noncomplia nce with diet, exercise, medication s, glucose checks Hypercholesterolemia 136 69054 E78.00 Last lipid level 05/2019 abnormalAv oid all breads, potatoes, cereal, pasta, rice, margarine, refined sugars, milk yogurt, ice cream, juices, soda (including diet), beer, and manmade or manufactur ed desserts. Enjoy steak, fish, chicken (no skin), pork, butter, vegetables , beans, nuts, whole eggs, cheese (low fat or skim), cream in your coffee. Reduced visual acuity 13 110169 H54.7 ophthalmol ogist list Noncomplia nce with medication regimen 190110012 Z91.14 31 y/o HM with DM1 not using his insulin for last 4 months Reiterated uncontroll ed DM consequenc es blindness, kidney failure, stroke, heart attack, amputation s Depression screening 171 Z13.31 Positive. agrees to medication Denies SI Body mass index 25-29 - overweight 778446876 Z68.26 [id number] NITHYA BOWLING [facility] [address] [place] [address] 12/16/2021 12:05:08 12/16/2021 13:27:39 Type 1 diabetes mellitus 39413002 E10.9 HA1C 2018.Went to hospital thursday and they normalized his glucose. 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 foot exam done today. Monofilame nt exam is normal. no nail cahnges. Bottons of feet are cracked and dry. Noncomplia nce with diet, exercise, medication s, glucose checks. - F/U 2 weeks- check sugars daily at least 4x ; goal fasting <130 and 1-2 hours after meal <180. call office if sugars falling under 70. Patient aware of hypoglycem ia symptoms. - discussed diet: avoid sugars, pasta, tortillas, bread, rice, potatoes - Exercise 30 min 5x week - diabetic eye exam, given referral today [facility] 12/16/21 Dry skin 78305829 L85.3 b/l feet [id number] NITHYA BOWLING [facility] [address] [place] [address] 05/23/2022 09:49:47 05/26/2022 11:40:45 Uncontrolled type 1 diabetes mellitus 476039702 E10.65 BG 190 this morning. He took insulin last night. Long conversati on on effects of uncontroll ed DM including kidney damage, dialysis, heart failure, , DKA, neuropathy , blindness. Patient moving to [place] on Thursday. Will give enough insulin for him to establish. we looked up [facility] in [facility] and I had him write down number to call and schedule today. Will treat depression to increase compliance . Depression screening 171 779286 Z13.31 Positive. agrees to medication Denies SI Depressive disorder 1462 7004 F32.A phq score 11. patient + depression w/o SI/HI. Will start treatment with amitriptyl ine to help with sleep and depression . did not like lexapro and stopped after 1 month due to worsening depression sx. We discussed setting up with provider in [facility] and number for fqhc given to toi today. discussed importance of treatment so he can take care of DM1. - advised counseling to work on childhood trauma-Natalie hardy was educated on his prescribed medication s, rationale for medication s, dosing indication s, adverse reactions, black box warning, dosing indication s, SE (e.g., decreased libido, weight gain, gynecomast ia, and galactorrh ea) and the risks and benefits.- Call center with questions/ concerns. Go to ER or call 911 for crisis (e.g., suicidal behaviors, suicidal ideations, intent or plan emerge). Additional ly, patient has suicide hotline #.- call with questions Type 1 paramjit betes mellitus [id number] E10.9 Non compliance with diet, exercise, medication s, glucose checks. - labs today- ppsv23: 05/22/2019- foot exam done 12/16/21 Positive s creening for depression on PHQ-9 (Patient Health Questionnaire 9) [id number] 94106 Z13.89 [id number] Junior britton MD [facility] [address] [place] [address] 03/16/2024 14:07:17 03/16/2024 14:16:40 [id number] NITHYA BOWLING [facility] [address] [place] [address] 03/17/2024 15:30:39 03/17/2024 16:37:12 Type 1 diabetes mellitus 19298436 E10.9 needs refills today. sending to [facility] for pump. agrees to have close f/u. A1C not in target. recent blood work for kidneys stable. medication regiment: lantus 20 units qd and sliding scale lispro 2 units if 160-220; 4 units if 221-280; 6 units; 8 units if 341-400 Non compliance with diet, exercise, medication s, glucose checks. - labs today- ppsv23: 05/22/2019- foot exam done 12/16/21- alb/cr negative Moderate r ecurrent major depression [id number] F33.1 phq 20pt with history of trauma currently off medication s. ROS + recent psych hospitaliz ations. feels safe to go home. no plan for SI. number for chestnut provided. - advised counseling -Patient was educated on his prescribed medication s, rationale for medication s, dosing indication s, adverse reactions, black box warning, dosing indication s, SE (e.g., decreased libido, weight gain, gynecomast ia, and galactorrh ea) and the risks and benefits. -Call center with questions/ concerns. Go to ER or call 911 for crisis (e.g., suicidal behaviors, suicidal ideations, intent or plan emerge). Additional ly, patient has suicide hotline #. - f/u one month - call with questions Positive s creening for depression on PHQ-9 (Patient Health Questionnaire 9) [id number] 16694 Z13.89 phq 20started on medication s [id number] NITHYA BOWLING [facility] [address] [place] [address] 04/21/2024 09:25:24 04/21/2024 11:35:35 Moderate recurrent major depression [id number] F33.1 phq 13 now from 20. add on trazadone for sleep.pt with history of trauma currently off medication s. ROS + recent psych hospitaliz ations. feels safe to go home. no plan for SI. number for chestnut provided. - advised counseling -Patient was educated on his prescribed medication s, rationale for medication s, dosing indication s, adverse reactions, black box warning, dosing indication s, SE (e.g., decreased libido, weight gain, gynecomast ia, and galactorrh ea) and the risks and benefits.- Call center with questions/ concerns. Go to ER or call 911 for crisis (e.g., suicidal behaviors, suicidal ideations, intent or plan emerge). Additional ly, patient has suicide hotline #.- f/u one month- call with questions Positive s creening for depression on PHQ-9 (Patient Health Questionnaire 9) [id number] 97466 Z13.89 phq 13 from 20started on medication s [id number] Bob Baker MD [facility] [address] [place] [address] 06/07/2025 14:14:12 06/07/2025 15:21:32 Type 1 diabetes mellitus 11465953 E10.69 [id number] needs refills today. sending to endo for pump. agrees to have close f/u. A1C not in target. recent blood work for kidneys stable. A1C 8.8% medication regiment: lantus 20 units qd and sliding scale lispro 2 units if 160-220; 4 units if 221-280; 6 units; 8 units if 341-400 Non compliance with diet, exercise, medication s, glucose checks. - labs today- ppsv23: 05/22/2019- foot exam done 05/2025, abnormal- alb/cr negative Moderate r ecurrent major depression [id number] F33.1 phq 13, start sertraline as he does not feel Lexapro helped that much. Denies SI or HI. States he had a brief period of cutting himself a few months ago but none recently. He knows to go to ER if he has thoughts of suicide. He has suicide hotline number. - advised counseling -Patient was educated on his prescribed medication s, rationale for medication s, dosing indication s, adverse reactions, black box warning, dosing indication s, SE (e.g., decreased libido, weight gain, gynecomast ia, and galactorrh ea) and the risks and benefits.- Call center with questions/ concerns. Go to ER or call 911 for crisis (e.g., suicidal behaviors, suicidal ideations, intent or plan emerge). Additional ly, patient has suicide hotline #.- f/u one month- call with questions Albuminuria [id number] R8 0.9 [id number] add on Health Concerns Section Related Observation LastModified by Organization Detai ls LastModified Time None Recorded Concern Status LastModified by Organization Details LastModified Time None Recorded Advance Directives Directive N: Payers Insurance Date Sequence Insurance Name Policy Number Policy Piper Covered Member ID Piper Member ID Guarantor Name 06/15/2025 1 *SELF PAY* Jai Choi 12/12/2021 SLIDING FEE SCHEDULE - DISCOUNT Mamadou Choi 03/17/2024 1 [facility] (MEDICAID HMO) [id number] 0003 Mamadou Choi [id number] Mamadou Choi 04/21/2024 4 [place] [employer] - [place]UAL [place]IGIBLE (MEDICARE REPLACEMENT/AD VANTAGE - HMO) [id number] Mamadou Choi [id number] Mamadou Choi 06/15/2025 2 [place] [id number] Mamadou Choi [id number] Mamadou Choi 06/15/2025 1 [place] [employer] Mamadou Choi [id number] Mamadou Choi 03/24/2024 SLIDING FEE SCHEDULE - DISCOUNT Mamadou Choi 03/30/2024 1 [facility] (MEDICAID HMO) [id number] 0003 Mamadou Choi [id number] Mamadou Choi 06/15/2025 1 [facility] [id number] Mamadou Choi [id number] Mamadou Choi 03/17/2024 1 [place] Mamadou Choi [id number] Mamadou Choi 03/17/2024 2 [facility] (MEDICAID HMO) [id number] 0003 Mamadou Choi [id number] Mamadou Choi 03/17/2024 1 [place] [facility] Mamadou Choi [id number] Mamadou Choi 08/21/2025 1 [facility] PRIOR TO 06/16/2025 (MEDICAID REPLACEMENT - HMO) [id number] Mamadou Choi [id number] Mamadou Choi Notes Date Note Type Note Provider Name and Address Organization Details Recorded Time 2 text/html HyperlipidemiaReported by PatientHPIFor type of hyperlipidemia, patient reportscombined. For duration, patient reportschronic. For control, patient reportsnot at goalbut reportsusually well controlled,improving, andat goal. For compliance, patient reportsnoncompliant with dietbut reportscompliantandexercise s. For risk factors, patient reportsdiabetes. For prior tests, patient reportshighest ldl level:(189). For current therapy, patient reportscurrently taking:. For complications, patient reportsno coronary artery disease,no peripheral artery disease, andno cardiovascular disease. Diabetes F/UReported by PatientHPIFor context, patient reportsnot seeing eye doctor yearly,not checking feet regularly,not taking aspirin daily, andmissing doses of medication. For associated symptoms, patient reportsweight loss (___ lbs),confusion,increased appetite, andnumbness of feetbut reportsno weight gain,no dizziness,no sweats,no headaches,no increased thirst,no increased urination,no blurred vision, andno calluses on feet. For review finger sticks, patient reportsfasting: ___,post breakfast: ___, andpost lunch: ___. For labs, patient reportslast a1c result: 12(2019). Major Depressive DisorderReported by PatientHPIFor associated symptoms, patient reportsdifficulty concentrating,fatigue,weigh t loss,feelings of hopelessness,inactivity/wit hdrawl from usual acitivities, andsleep disturbancesbut reportsno irritability,no restlessness,no agitation,no change in appetite,weight gain,no feelings of helplessness,no inappropriate guilt,no suicidal ideations,no excessive sleeping,no hallucinations, andno delusions. For severity, patient reportsmoderate.ROS as noted in the HPI 32 y/o HM here for follow up ON UNCONTROLELD DMI and depression Patient was last seen 11/2021 and [facility] f/u appointments. He states he restarted taking insulin again this week and feels much better today. He states he was not taking insulin most days. He thinks it is due to depression. He is feeling melancholic and endorses decreased energy, mood. decreased sleep, anxiety. Problems stem from childhood trauma. Has not set up with therapy. He took lexapro for one month but felt more mood swings, crying episodes, and depression. He stopped medication. He does not have SI/HI but has had two days where he did not care if I am alive. He denies numbness or tingling but does say he has leg pain, weight loss. Not complaint with diet. NITHYA BOWLING Attn: Accounting,[address] [place], [address], [facility] 05/23/2022 10:34:58 4 text/html HyperlipidemiaReported by PatientHPIFor type of hyperlipidemia, patient reportscombined. For duration, patient reportschronic. For control, patient reportsnot at goalbut reportsusually well controlled,improving, andat goal. For compliance, patient reportsnoncompliant with dietbut reportscompliantandexercise s. For risk factors, patient reportsdiabetes. For prior tests, patient reportshighest ldl level:(189). For current therapy, patient reportscurrently taking:,last ldl level: (142),last triglyceride level: (204), andlast hdl level: (52). For complications, patient reportsno coronary artery disease,no peripheral artery disease, andno cardiovascular disease. Diabetes F/UReported by PatientHPIFor context, patient reportshome blood sugar range high,not seeing eye doctor yearly,not checking feet regularly,not taking aspirin daily, andmissing doses of medication. For associated symptoms, patient reportsweight loss (___ lbs),confusion,increased appetite, andnumbness of feetbut reportsno weight gain,no dizziness,no sweats,no headaches,no increased thirst,no increased urination,no blurred vision, andno calluses on feet. For review finger sticks, patient reportsfasting: ___,post breakfast: ___, andpost lunch: ___. For labs, patient reportslast a1c result: 10.2. Major Depressive DisorderReported by PatientHPIFor associated symptoms, patient reportsdifficulty concentrating,fatigue,weigh t loss,feelings of hopelessness,inactivity/wit hdrawl from usual acitivities,suicidal ideations, andsleep disturbancesbut reportsno irritability,no restlessness,no agitation,no change in appetite,weight gain,no feelings of helplessness,no inappropriate guilt,no excessive sleeping,no hallucinations, andno delusions. For severity, patient reportsmoderate.ROS as noted in the HPI 34 y/o HM here for acute visit with significant other He just moved back from [place] and needs refills on insulin. He denies any DKA in the last year. He was hospitalized at psych institution prior to moving back from [place] for thoughts of harm. He ran out of all medication and would like to restart. For diabetes he does take him medication and checks glucose sometimes. would like to have a pump. He is living with his mom at this time and has good support system. He has scratched himself with his nails in the last couple months to release pain. He is happy with current relationship but feels he carries some trauma from his last. Mamadou and his partner are trying to conceive and he worried there could be something wrong with his sperm. They have been trying for a one month. endorses decreased energy, mood. decreased sleep, anxiety. Has not set up with therapy. He feels safe going home today. knows suicide hotline number. NITHYA BOWLING Attn: Accounting,[address] [facility], [place], [address], [facility] 03/23/2024 14:47:46 4 text/html ROS as noted in the HPI 34 y/o HM here for depression f/u was doing well on lexapro but had a very tough last week with some passive SI. 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 He has done well on combo trazadone and lexapro. did not schedule for therapy. NITHYA BOWLING Attn: Accounting,[address] [facility], [place], [address], [facility] 05/02/2024 09:43:55 5 text/html Patient was in [place] and was hospitalized with a minor stroke 2 weeks ago felt clammy and developed severe pain left side and arm went numb past the elbow. Went to ER and CT scan and MRI and gave him medication for blood clots. was in hospital for 4 days. he moved back to [place] and needs refills of his medication. he has started to feel numbness and tingling in his toes. has numbness and tingling in toes NITHYA BOWLING Attn: Accounting,[address] [facility], [place], [address], [facility] 06/08/2025 13:34:53
--- NOTE | 2025-09-15 08:27 | ED.SYNCOPE ---
HPI - Syncope General Chief Complaint: Syncope Stated Complaint: fainted in shower and hurt back; cyst Time Seen by Provider: 09/15/25 08:09 Source: patient Mode of arrival: ambulatory Limitations: no limitations History of Present Illness HPI narrative: This is a 35-year-old male with history of type 1 diabetes who presents to the ED for syncopal episode and wound. Patient states that for the past few days he has had a wound to his right thigh. He recalls bumping it on a piece of furniture the other day but it has been increasing in size and warmth and pain. He states that he was in the shower this morning getting ready to go to urgent care if have it evaluated when he became lightheaded and had a syncopal episode he states that just before this, the pain flared up significantly. Denies chest pain palpitations. He states that he fell backwards and broke a soap dish causing back pain to his mid back. He is unsure if he hit his head but denies any headache at this time. Patient notes that he did check his blood sugar yesterday and it was in the 200s which is a little high for him. He has otherwise been eating well. Related Data Allergies Allergy/AdvReac Type Severity Reaction Status Date / Time No Known Allergies Allergy Verified 12/13/21 23:45 Review of Systems Review of Systems: Gen.: Denies fevers or chills Eyes: Denies eye pain or visual change ENT: Denies congestion Respiratory: Denies shortness of breath or cough CV: Denies chest pain or palpitations GI: Denies abdominal pain nausea, emesis or diarrhea denies burning, urgency, frequency or hematuria Musculoskeletal: Denies back pain or muscle pain Neuro: Denies numbness, tingling, weakness or focal weakness Skin: As per HPI Except as documented, all other systems reviewed and negative [facility] Past Medical History Medical History Diabetes Social History Social History Smoking status: Never smoker Exam Narrative: APPEARANCE: No acute distress, nontoxic, resting in bed EYES: EOMI HEENT: Normocephalic, atraumatic, OMM RESPIRATORY: No respiratory distress Clear to auscultation bilaterally with no rhonchi wheezing or rales. CARDIOVASCULAR: Regular rate and rhythm without murmurs rubs or gallops. ABDOMINAL: Soft, nontender, nondistended, no rebound or guarding MUSCULOSKELETAl: Moves all extremities. Superficial abrasions over the mid back. Tenderness to palpation to the paraspinal right lower thoracic region. NEURO: Awake and alert. Following commands, speech normal, no focal deficits SKIN:: 2 x 2 cm area of fluctuance over the right lateral thigh with minimal surrounding erythema associated tenderness to palpation. PSYCHIATRIC: Normal affect/mood, Course Vital Signs Vital signs: Vital Signs Temperature 99.1 F 09/15/25 08:10 Pulse Rate 95 09/15/25 08:10 Respiratory Rate 12 09/15/25 08:10 Blood Pressure 121/88 09/15/25 08:10 Pulse Oximetry 100 09/15/25 08:10 Oxygen Delivery Room Air 09/15/25 08:10 Temperature 99.1 F 09/15/25 08:10 Pulse Rate 79 09/15/25 12:01 Respiratory Rate 17 09/15/25 12:01 Blood Pressure 126/71 09/15/25 12:01 Pulse Oximetry 98 09/15/25 12:01 Oxygen Delivery Room Air 09/15/25 08:10 Procedures Abscess I/D lower extremity: Date of Incision: 09/15/25 MDM - Syncope MDM Narrative Medical decision making narrative: 35-year-old male Presenting for syncope and abscess. On initial evaluation patient was in no acute distress afebrile, hemodynamic stable. Differentials include but are not limited to: Abscess, cardiogenic syncope, CVA, mass, ICH, DKA Notable exam findings: Large abscess to the right thigh with associated erythema and tenderness. Tenderness and abrasion over the paraspinal thoracic back Notable lab findings: Leukocytosis at 13.8, mild hyponatremia at 128, hyperglycemia to 334. Troponin wnl EKG showed no concerning findings. Notable imaging findings: CT thoracic spine showed no acute process Suspect that patient had vasovagal syncope due to pain related to his abscess. Low suspicion for cardiogenic or intracranial causes. Abscess was drained as above, patient tolerated procedure well. He does have insulin at home to manage his hyperglycemia. He was started on Bactrim for the abscess. Was advised follow-up with his PCP in the next week for re-evaluation. Patient was agreeable to this plan. Given strict return precautions. Medical Records Attestation: I reviewed the patient's medical records. Lab Data Attestation: I reviewed the patient's lab results. 09/15/25 08:19 09/15/25 08:19 Labs: Lab Results 09/15/25 09/15/25 09/15/25 Range/Units 08:19 08:22 11:20 WBC 13.8 H (4.5-10.0) K/mm3 RBC 4.79 (4.6-6.20) M/mm3 Hgb 14.0 (14.0-18.0) g/dL Hct 39.4 L (42.0-52.0) % MCV 82.3 (80-100) fl MCH 29.2 (26-34) pg MCHC 35.5 (32-36) g/dl RDW 12.0 (11.5-14.5) % Plt Count 365 (150-375) k/mm3 MPV 9.2 (7.4-10.4) fl Immature Gran % (Auto) 0.4 (0-0.5) % Neut % (Auto) 78.6 H (45.5-73.1) % Lymph % (Auto) 13.0 L (18.3-44.2) % [place] % (Auto) 6.4 (2.6-8.5) % Eos % (Auto) 1.2 (0-4.4) % Baso % (Auto) 0.4 (0.2-1.2) % Lymph # (Auto) 1.79 (0.9-3.2) K/mm3 [place] # (Auto) 0.9 H (0.1-0.6) K/mm3 Eos # (Auto) 0.2 (0-0.3) K/mm3 Baso # (Auto) 0.1 (0.0-0.1) K/mm3 Abs Immat Gran (auto) 0.06 H (0.00-0.031) K/mm3 Absolute Neuts (auto) 10.8 H (1.3-6.7) K/mm3 Absolute Nucleated RBC 0.000 (0.0-0.012) K/mm3 Nucleated RBC % 0.0 (0.0-0.2) % Sodium 128 L (137-145) mmol/L Potassium 3.8 (3.4-5.0) mmol/L Chloride 95 L (98-107) mmol/L Carbon Dioxide 25 (22-30) mmol/L Anion Gap 8 (4-12) mmol/L BUN 12 D (9-20) mg/dL Creatinine 0.63 L (0.7-1.3) mg/dL Estim Creat Clear Calc 149 ml/min Estimated GFR > 60 (59 - ) Glucose 334 H (65-110) mg/dL POC Capillary Glucose 347 H (65-105) mg/dl Calcium 9.3 (8.4-10.2) mg/dL Total Bilirubin 1.2 (0.2-1.3) mg/dL AST 37 (17-59) U/L ALT 32 (6-50) U/L Alkaline Phosphatase 215 H (38-126) U/L Troponin I 0.016 0.015 (0.000-0.034) ng/mL Total Protein 8.1 (6.3-8.2) g/dL Albumin 4.4 (3.5-5.1) g/dL Imaging Data Attestation: I personally reviewed and interpreted this imaging study as follows: Radiologist's impression: Impressions Thoracic Spine CT 09/15/25 08:47 Impression: No acute abnormality. ECG Data EKG #1: Attestation: I personally reviewed and interpreted this ECG as follows: ECG completion date: 09/15/25 ECG completion time: 08:15 Interpretation: Normal sinus rhythm rate of 92, normal axis, normal intervals, nonspecific T-wave change, no ST changes. EKG #2: Attestation: I personally reviewed and interpreted this ECG as follows: ECG completion date: 09/15/25 ECG completion time: 11:22 Interpretation: Normal sinus rhythm rate of 75, normal axis, normal intervals, no acute ST or T-wave changes Discharge Plan Discharge Clinical Impression: Abscess, Acute hyperglycemia Patient Disposition: Home Condition: Stable Instructions: Antibiotic Form, Abscess (ED) Additional Instructions: You were found to have an abscess. This was drained successfully. The packing will need to be changed every other day. You can either do this yourself or with Dr. Oliver, general surgery, your pcp. You were given a prescription for bactrim, take this as prescribed. Return to the ED for new or worsening symptoms. For pain, discomfort or temperature greater than or equal to 100.8 ?F please alternate the following 2 medications as needed. First medication- acetaminophen/Tylenol- 1000mg every 6-8 hours as needed for above indications. Second medication- ibuprofen/Motrin-600mg every 6-8 hours as needed for above indication. Patient Language: Latvian Prescriptions: New sulfamethoxazole-trimethoprim [Bactrim DS] 800-160 mg tablet 1 tablet PO Q12H Qty: 10 0RF Follow-up/Referrals: Lori,NITHYA Matamoros [Primary Care Provider, Family Practice] Evan Oliver MD [Physician, General Surgery]
[2025-09-15 08:28] LABS: Hematocrit 39.4 % (42.0-52.0); Hemoglobin 14.0 g/dL (14.0-18.0); Immature Granulocyte Percent A 0.4 % (0-0.5); Lymphocytes Absolute Auto 1.79 K/mm3 (0.9-3.2); Mean Corpuscular HGB Conc 35.5 g/dl (32-36); Mean Corpuscular Hemoglobin 29.2 pg (26-34); Mean Corpuscular Volume 82.3 fl (80-100); Nucleated Red Blood Cells Absolute Auto 0.000 K/mm3 (0.0-0.012); Nucleated Red Blood Cells Perc 0.0 % (0.0-0.2); Platelet Count Result 365 k/mm3 (150-375); Red Blood Count 4.79 M/mm3 (4.6-6.20); White Blood Count 13.8 K/mm3 (4.5-10.0)
[2025-09-15] MEDS: SODIUM CHLORIDE 0.9% IV 1,000 ML 999 ML IV CONT (08:33)
[2025-09-15] MEDS: KETOROLAC 30 MG/ML VIAL (*BKC) IV PUSH (08:34)
[2025-09-15 08:44] LABS: Alanine Aminotransferase 32 U/L (6-50); Albumin Level 4.4 g/dL (3.5-5.1); Alkaline Phosphatase 215 U/L (38-126); Anion Gap 8 mmol/L (4-12); Aspartate Amino Transferase 37 U/L (17-59); Bilirubin,Total 1.2 mg/dL (0.2-1.3); Blood Urea Nitrogen 12 mg/dL (9-20); Calcium 9.3 mg/dL (8.4-10.2); Carbon Dioxide 25 mmol/L (22-30); Chloride 95 mmol/L (98-107); Estimated CRCL calculation 149 ml/min; Estimated Glomerular Filt Rate > 60; Glucose 334 mg/dL (65-110); Potassium 3.8 mmol/L (3.4-5.0); Sodium 128 mmol/L (137-145); Total Protein 8.1 g/dL (6.3-8.2)
[2025-09-15 08:52] LABS: Troponin I 0.016 ng/mL (0.000-0.034)
--- OUTSIDE RECORDS SUMMARY | 2025-09-15 09:22 | XMS_ITS | Clinical Summary ---
Author Organization [facility] HealthCare Medic [facility] Address [address] [place] [address] Phone Care Team Providers Care Miniature Set Constructor Name Role Phone Unavailable Primary Care Provider [...] patient's age to complete this topic Insurance [place] [address]
[2025-09-15] MEDS: SULFAMETHOXAZOLE/TRIMETHOPRIM 800/160 MG DS TABLET 1 TAB PO (11:31)
[2025-09-15 11:50] LABS: Troponin I 0.015 ng/mL (0.000-0.034)
--- NOTE | 2025-09-15 12:48 | ECG_ITS ---
Test Date: 2025-09-15 11:22:37 Measurements Intervals [place] Rate: 75 P: 19 MD: 149 QRS: 29 QRSD: 99 T: -10 QT: 381 QTc: 427 Interpretive Statements SINUS RHYTHM NONSPECIFIC ST ELEVATION IN ANT/HIGH LAT LEADS BORDERLINE T WAVE ABNORMALITY- INFERIOR LEADS BORDERLINE ECG Compared to ECG 09/15/2025 08:15:14 NO SIGNIFICANT CHANGE Electronically Signed On 09-15-2025 12:59:00 CDT by Cristhian Ramirez D.O.
== END 2025-09-15 12:16 | disposition home or self-care (01) ==
PROVIDERS: Emergency Provider Student in an Organized Health Care Education/Training Program; PCP Physician Assistant
DX: L02.415 Cutaneous abscess of right lower limb (principal); E10.65 Type 1 diabetes mellitus with hyperglycemia; Z79.4 Long term (current) use of insulin; R94.31 Abnormal electrocardiogram [ECG] [EKG]
CPT/HCPCS: 10061; 36415; 72128; 80053; 82948; 84484; 85025; 87070; 87075; 87186; 93005; 96361; 96374; 99284; A9270; J1885; J2003; J7030